=== PATIENT | male | born 1925 | race Caucasian/White ===

== ENCOUNTER 2017-01-16 12:10 | Inpatient (IN) | payer OTHER, BC ==
--- NOTE | 2017-01-16 12:25 | EDPHY ---
H & P HPI/ROS: CHIEF COMPLAINT: Fall, chest bruising, chest pain and hypoxia HISTORY OF PRESENT ILLNESS: Patient presents by EMS from [facility]. He reports a fall last night around 8:00 p.m.. He struck his chest on a hard surface and bathroom. He says he got himself up off the bathroom floor went to his bed. He slept normal and then called his daughter in the morning when he awoke. The daughter contacted the [facility] in the [facility] activated EMS. He complained of some central and left-sided chest pain. Some shortness of breath. He denies striking his head or losing consciousness. He denies any headache or neck pain. No back pain. No abdominal pain. No injuries to the arms or legs. The pain is worse with palpation or movement. Patient is minimally ambulatory without assistance. He seen at time of arrival. No other associated complaints or modifying factors. REVIEW OF SYSTEMS: Ten systems reviewed and are negative unless otherwise noted in the HPI PAST MEDICAL HISTORY: Reviewed. On Coumadin for atrial fibrillation PAST SURGICAL HISTORY: Reviewed SOCIAL HISTORY: Nonsmoker. Lives in [facility] FAMILY HISTORY: Noncontributory EXAMINATION General Appearance: Alert, no distress Head: normocephalic, atraumatic Power sign. No raccoon eyes. Eyes: Pupils equal and round, no conjunctival pallor or injection. EOMs intact. No nystagmus ENT, Mouth: Mucous membranes moist. Airway patent Neck: Normal inspection, supple, non-tender. No crepitus, step-off or deformity. Respiratory: Significant diminishment of the lungs on the right side greater than the left. There are crackles on the left. Mild rhonchi. No retractions or distress. Cardiovascular: Irregularly irregular rhythm. Pulses intact distally symmetrically. There is bruising on the left anterior chest. Gastrointestinal: Abdomen is soft and nontender Back: non-tender, no bony abnormalities Neurological: A&O, nonfocal, normal gait Skin: Warm and dry, no rash multiple areas of ecchymosis the left anterior chest. Extremities: Ecchymosis on left anterior chest. Nontender, symmetric pedal edema. range of motion is symmetric. Psychiatric: Mood and affect normal DIFFERENTIAL DIAGNOSES: Including but not limited to rib fracture, hemothorax, pneumothorax, aortic injury, intracranial hemorrhage, cervical spine injury, contusion, hematoma MDM: 12:20 p.m. Reports a mechanical fall last night. The patient was able to get back up in good was bed. This morning he called his daughter. EMS reports hypoxia was bruising to the anterior chest. He has no headache or neck pain. He has no abdominal pain or injuries to the arms or legs. I have ordered CT scans of the head, cervical spine and chest without contrast due to allergy. I have ordered stat chest x-ray EKG and laboratory studies. 12:40 p.m. Chest x-ray as read by myself and Dr. Bonilla reveals a large sided right pleural effusion versus hemothorax. Patient is already in the CT scanner. Vital signs have improved on supplemental oxygen. He is awake and alert. No acute distress. 12:50 p.m. Notified by RN that family member is now at bedside. She reports that he does not have an IV contrast allergy. However the patient already has had CT scans performed. 1:05 p.m. Case discussed with trauma surgeon Dr. Dawkins. He will await the patient for the possibility of hemothorax. The patient remains awake alert. He is in no distress his vital signs are improving oxygen. He is not tachycardic. He is not hypotensive. 1:20 p.m. Patient has been evaluated by Dr. Dawkins. He has reviewed the patient's images as well. He feels this is fluid overload and not necessarily hemothorax. He would like the patient to be seen by hospitalist and the he will provide consultation. He would like to Coumadin coagulopathy reversed to proceed with thoracentesis when appropriate 1:40 p.m. Case discussed with Dr. Ryan. The patient will be admitted to Dr. Ramesh. He is admitted stable condition with hypoxia, hyperkalemia, congestive heart failure, hypervolemia. We discussed 2 units of FFP and 5 mg of p. o. vitamin K to reverse the Coumadin coagulopathy. These have been ordered 1:[address] scan of the cervical spine reveals an old T1 fracture. Also reveals a acute versus subacute T3 fracture. Unknown chronicity due to no imaging since January 2016. I have discussed this with Dr. Sellers he will provide consultation. He is neuro intact. 2:15 p.m. Contacted by radiologist Dr. Patel. CT scan of the chest reveals multiple abnormalities as noted. The acute findings include left-sided rib fractures 5 through 7. Questionable chronicity of T3 compression fracture. No pneumothorax. No hemothorax. Findings discussed otherwise. Patient remains stable on supplemental oxygen. He has been admitted in stable condition. Source: Patient, EMS Exam Limitations: No limitations - Medical/Surgical History Hx Asthma: No Hx Chronic Respiratory Disease: No Hx Diabetes: No Hx Cardiac Disease: Yes Hx Renal Disease: No Hx Cirrhosis: No Hx Alcoholism: No Hx HIV/AIDS: No Hx Splenectomy or Spleen Trauma: No Other PMH: chf/pacemaker/HTN/IA/back surgery, AF, CABG - Social History Smoking Status: Former smoker Constitutional: Initial Vital Signs Temperature (C) 98.1 F 01/16/17 12:10 Heart Rate 77 01/16/17 12:10 Respiratory Rate 24 H 01/16/17 12:10 Blood Pressure 115/75 01/16/17 12:10 O2 Sat (%) 91 L 01/16/17 12:10 O2 Delivery Mode Oxymask O2 (L/minute) 10 Allergies/Adverse Reactions: No Known Allergies Allergy (Verified 02/14/16 17:39) Home Medications: Medication Instructions Recorded Aspirin EC [Aspirin EC 81 mg (*)] 81 mg PO HS 09/21/14 Carvedilol [Coreg (*)] 6.25 mg PO BIDMEAL 09/21/14 Ramipril [Altace 2.5mg (*)] 2.5 mg PO DAILY 09/21/14 Simvastatin [Zocor] 20 mg PO HS 09/21/14 Warfarin Sodium [Coumadin 2MG (*)] 2 mg PO WESA@21 09/21/14 Potassium Chloride [Klor-Con 10] 10 meq PO DAILY 02/14/16 Ferrous Sulfate [Ferrous Sulf 325 325 mg PO DAILY #30 tab 02/19/16 MG (*)] Cyanocobalamin [Vitamin B12 (*)] 1,000 mcg PO DAILY 01/16/17 Digoxin [Lanoxin 250 mcg (RX)] 250 mcg PO DAILY10 01/16/17 Furosemide [Lasix 40 MG (*)] 40 mg PO DAILY 01/16/17 Herbals/Supplements -Info Only 1 ea PO DAILY 01/16/17 Sennosides/Docusate Sodium 1 - 2 tab PO BID PRN 01/16/17 [Senokot-S] Warfarin Sodium [Coumadin 3MG (*)] 3 mg PO SUMOTUTHFR@21 01/16/17 ZOLPIDEM TARTRATE [Ambien CR 12.5 12.5 mg PO HS 01/16/17 mg] Medical Decision Making - Diagnostics Imaging Results: Imaging Impressions Cervical Spine CT 01/16/17 12:21 Impression: 1. Stable mild to moderate anterior wedge compression of T1 with new compression at T3 since January,. Clinical correlation recommended with respect to location of pain. 2. Multilevel degenerative disk disease most prominent at C5-C6 and at C6-C7 with some underlying mild to moderate spinal stenosis. 3. Mild to moderate facet hypertrophy from C2-C3 through C7-T1. Findings discussed with Dr. Shruthi Buckner who will relay the message to Blackwood Seven PAC at 13:32 hour, 01/16/2017. Chest CT 01/16/17 12:21 Impression: 1. Stable mild to moderate anterior compression of T1 and T7 with interval compression of T3 segment since January,. 2. Acute fractures left fifth through seventh ribs. 3. Stable moderate right pleural effusion with atelectasis and mucous plugging right lower lobe with stable consolidation or atelectasis right middle lobe. 4. Significant decrease in moderate left pleural effusion previously identified with small residual effusion and some atelectasis at the left base and lingula. Findings discussed with Blackwood Seven PAC at 13:57 hour, 01/16/2017. Chest X-Ray 01/16/17 12:21 Impression: Acute congestive heart failure with large right pleural effusion and interstitial pulmonary edema. Head CT 01/16/17 12:21 Impression: 1. Stable moderate atrophy. 2. No hemorrhage, mass effect, or definite acute peripheral infarct. 3. Stable mild microvascular ischemic disease. If symptoms worsen, additional imaging may be necessary. Findings discussed with Yves Torres PAC at 13:25 hour, 01/16/2017. - Data Points Laboratory Results: Laboratory Results 01/16/17 12:20 01/16/17 12:20 01/16/17 01/16/17 01/16/17 12:51 12:20 12:20 WBC RBC Hgb POC Hgb 13.6 gm/dL L gm/dL (13.7-17.5) Hct POC Hct 40 % % (40-51) MCV MCH MCHC RDW Plt Count MPV Neut % (Auto) Lymph % (Auto) [place] % (Auto) Eos % (Auto) Baso % (Auto) Nucleat RBC Rel Count Absolute Neuts (auto) Absolute Lymphs (auto) Absolute Monos (auto) Absolute Eos (auto) Absolute Basos (auto) Absolute Nucleated RBC Immature Gran % Immature Gran # PT INR APTT POC Sodium 144 mEq/L mEq/L (134-144) Sodium 139 mEq/L mEq/L (134-144) POC Potassium 4.2 mEq/L mEq/L (3.3-5.0) Potassium 5.4 mEq/L H mEq/L (3.5-5.2) POC Chloride 108 mEq/L mEq/L (97-110) Chloride 100 mEq/L mEq/L (97-110) Carbon Dioxide 19 mEq/l L mEq/l (22-31) Anion Gap 20 mEq/L H mEq/L (8-16) POC BUN 32 mg/dL H mg/dL (7-23) BUN 35 mg/dL H mg/dL (7-23) Creatinine 1.7 mg/dL H mg/dL (0.7-1.3) POC Creatinine 1.4 mg/dL H mg/dL (0.7-1.3) Estimated GFR 38 Glucose 74 mg/dL mg/dL (70-100) POC Glucose 65 mg/dL L mg/dL (70-100) Calcium 9.8 mg/dL mg/dL (8.5-10.4) Creatine Kinase 55 IU/L IU/L (0-224) Troponin I 0.706 ng/mL H ng/mL (0.000-0.034) NT-Pro-B Natriuret Pep 5910 pg/mL H pg/mL (0-450) Lipase 44 IU/L IU/L (23-300) 01/16/17 01/16/17 12:20 12:20 WBC 11.88 10^3/uL H 10^3/uL (3.80-9.50) RBC 3.94 10^6/uL L 10^6/uL (4.40-6.38) Hgb 14.4 g/dL g/dL (13.7-17.5) POC Hgb Hct 42.8 % % (40.0-51.0) POC Hct MCV 108.6 fL H fL (81.5-99.8) MCH 36.5 pg H pg (27.9-34.1) MCHC 33.6 g/dL g/dL (32.4-36.7) RDW 16.3 % H % (11.5-15.2) Plt Count 90 10^3/uL L 10^3/uL (150-400) MPV 10.3 fL fL (8.7-11.7) Neut % (Auto) 71.4 % % (39.3-74.2) Lymph % (Auto) 12.2 % L % (15.0-45.0) [place] % (Auto) 15.1 % H % (4.5-13.0) Eos % (Auto) 0.1 % L % (0.6-7.6) Baso % (Auto) 0.4 % % (0.3-1.7) Nucleat RBC Rel Count 0.3 % H % (0.0-0.2) Absolute Neuts (auto) 8.48 10^3/uL H 10^3/uL (1.70-6.50) Absolute Lymphs (auto) 1.45 10^3/uL 10^3/uL (1.00-3.00) Absolute Monos (auto) 1.79 10^3/uL H 10^3/uL (0.30-0.80) Absolute Eos (auto) 0.01 10^3/uL L 10^3/uL (0.03-0.40) Absolute Basos (auto) 0.05 10^3/uL 10^3/uL (0.02-0.10) Absolute Nucleated RBC 0.03 10^3/uL H 10^3/uL (0-0.01) Immature Gran % 0.8 % % (0.0-1.1) Immature Gran # 0.10 10^3/uL 10^3/uL (0.00-0.10) PT 43.0 SEC H SEC (12.0-15.0) INR 4.42 H (0.83-1.16) APTT 43.4 SEC H SEC (23.0-38.0) POC Sodium Sodium POC Potassium Potassium POC Chloride Chloride Carbon Dioxide Anion Gap POC BUN BUN Creatinine POC Creatinine Estimated GFR Glucose POC Glucose Calcium Creatine Kinase Troponin I NT-Pro-B Natriuret Pep Lipase Medications Given: Discontinued Medications Phytonadione (Vitamin K) 5 mg PO EDNOW ONE Stop: 01/16/17 13:35 Last Admin: 01/16/17 14:08 Dose: 5 mg Point of Care Test Results: 01/16/17 12:51 POC Sodium 144 POC Potassium 4.2 POC Chloride 108 POC BUN 32 H POC Creatinine 1.4 H POC Glucose 65 L Departure - Departure Disposition: [facility] Inpatient Acute Clinical Impression: Pleural effusion, Warfarin-induced coagulopathy, Hyperkalemia, Multiple fractures of ribs, left side, initial encounter for closed fracture Hypervolemia Qualifiers: Hypervolemia type: unspecified Qualified Code(s): E87.70 - Fluid overload, unspecified Fall Qualifiers: Encounter type: initial encounter Qualified Code(s): W19.XXXA - Unspecified fall, initial encounter Thoracic compression fracture Qualifiers: Encounter type: initial encounter Fracture type: closed Qualified Code(s): S22.000A - Wedge compression fracture of unspecified thoracic vertebra, initial encounter for closed fracture Condition: Fair
--- NOTE | 2017-01-16 12:32 | CPEKG ---
Heart Rate: 79 RR Interval: 759 P-R Interval: 170 QRSD Interval: 162 QT Interval: 416 QTC Interval: 477 P [place]: 0 QRS [place]: -73 T Wave [place]: 115 EKG Severity - ABNORMAL ECG - EKG Impression: VENTRICULAR-PACED RHYTHM Electronically Signed By: Kushal Bonilla 16-Jan-2017 12:39:15
[2017-01-16 12:36] LABS: % IMMATURE GRANULYOCYTES 0.8 % (0.0-1.1); ABSOLUTE NRBC COUNT 0.03 10^3/uL (0-0.01); ADD DIFF? NO; ADD MORPH? NO; ADD SCAN? NO; ATYPICAL LYMPHOCYTE FLAG 10 (0-99); FRAGMENT RBC FLAG 0 (0-99); HEMATOCRIT 42.8 % (40.0-51.0); HEMOGLOBIN 14.4 g/dL (13.7-17.5); LEFT SHIFT FLG 10 (0-99); LIPEMIA HEMOLYSIS FLAG 80 (0-99); MEAN CELL HEMOGLOBIN 36.5 pg (27.9-34.1); MEAN CELL HEMOGLOBIN CONCENTR. 33.6 g/dL (32.4-36.7); MEAN CELL VOLUME 108.6 fL (81.5-99.8); MEAN PLATELET VOLUME 10.3 fL (8.7-11.7); NRBC-AUTO% 0.3 % (0.0-0.2); PLATELET CLUMPS FLAG 0 (0-99); PLATELET COUNT 90 10^3/uL (150-400); RED BLOOD CELL COUNT 3.94 10^6/uL (4.40-6.38); RED CELL DISTRIBUTION WIDTH 16.3 % (11.5-15.2)
[2017-01-16 12:50] LABS: INR 4.42 (0.83-1.16)
[2017-01-16 12:51] LABS: APTT 43.4 SEC (23.0-38.0)
[2017-01-16 13:01] LABS: ANION GAP 20 mEq/L (8-16); CALCIUM 9.8 mg/dL (8.5-10.4); CARBON DIOXIDE 19 mEq/l (22-31); CHLORIDE 100 mEq/L (97-110); CREATININE 1.7 mg/dL (0.7-1.3); GLOMERULAR FILTRATION RATE 38; GLUCOSE 74 mg/dL (70-100); POTASSIUM 5.4 mEq/L (3.5-5.2); SODIUM 139 mEq/L (134-144)
[2017-01-16 13:11] LABS: TROPONIN I 0.706 ng/mL (0.000-0.034)
[2017-01-16] MEDS ORDERED: PHYTONADIONE 2.5 MG/2.5 ML ORAL UDL PO ONE (13:34)
[2017-01-16] MEDS ORDERED: HYDROmorphONE/DILAUDID 1 MG/ML INJ IVP PRN (15:10)
[2017-01-16] MEDS ORDERED: oxyCODONE IR 5 MG TAB PO PRN (15:10)
[2017-01-16] MEDS ORDERED: ONDANSETRON DISINTEGRATING 4 MG TAB PO PRN (15:10)
[2017-01-16] MEDS ORDERED: ALBUTEROL 3 ML DEYVIAL IH PRN (15:10)
[2017-01-16] MEDS ORDERED: ACETAMINOPHEN 325 MG TAB PO PRN (15:10)
[2017-01-16] MEDS ORDERED: ONDANSETRON 4 MG/2 ML VIAL IVP PRN (15:10)
[2017-01-16] MEDS ORDERED: SENNOSIDES/DOCUSATE SODIUM TAB PO PRN (15:13)
--- NOTE | 2017-01-16 16:18 | SOAPPROG ---
SOAP Progress Note Assessment/Plan: Assessment: 89-YEAR-OLD MALE WHO TRIPPED AND FELL AT HOME WITH SOME ECCHYMOSIS OVER HIS LEFT ANTERIOR CHEST. DENIES LOSS OF CONSCIOUSNESS. HE APPEARS HOWEVER TO HAVE A LARGE EFFUSION ON THE RIGHT WITH NO OBVIOUS RIB FRACTURES RIGHT-SIDED CHEST TRAUMA. HE ALSO APPEARS TO BE IN SIGNIFICANT CONGESTIVE HEART FAILURE WITH SHORTNESS OF BREATH AND HYPOXEMIA, LEG EDEMA AND LARGE RIGHT PLEURAL EFFUSION HE IS ANTICOAGULATED WITH COUMADIN FOR AFIB WITH AN INR 4.4 I DOUBT THAT HE IS A TRAUMA IS A SIGNIFICANT PART OF HIS MEDICAL PICTURE AT THIS POINT AND RECOMMEND THE PATIENT BE ADMITTED TO INTERNAL MEDICINE. I WILL FOLLOW THE PATIENT. HE WILL NEED REVERSAL IS INR AND THEN THORACENTESIS ON THE RIGHT WITH POSSIBLE CHEST TUBE PLACEMENT OF BLOODY. RISKS AND OPTIONS BEEN DISCUSSED WITH THE PATIENT AND HIS FAMILY Plan: ADMIT TO INTERNAL MEDICINE/INR REVERSAL/RIGHT THORACENTESIS 01/16/17 16:16 Objective: Vital Signs Temp Pulse Resp BP Pulse Ox 36.7 C 82 20 122/66 H 92 01/16/17 14:44 01/16/17 14:44 01/16/17 14:44 01/16/17 14:44 01/16/17 14:44 PT 43.0 SEC (12.0-15.0) H 01/16/17 12:20 INR 4.42 (0.83-1.16) H 01/16/17 12:20 ICD10 Worksheet Patient Problems: Problems Problem Status Onset Fall Acute Hyperkalemia Acute Hypervolemia Acute Multiple fractures of ribs, left side, initial encounter for closed fracture Acute Pleural effusion Acute Thoracic compression fracture Acute Warfarin-induced coagulopathy Acute Bilateral pleural effusion Acute Cellulitis Acute Chronic Disease Mgmt/Transitional Care Acute Excessive anticoagulation Acute Ribs, multiple fractures Acute
[2017-01-16] MEDS: CARVEDILOL 6.25 MG TAB PO SCH (18:35)
[2017-01-16] MEDS: NS 1,000 ML IV SCH (18:37)
--- NOTE | 2017-01-16 19:04 | GHP ---
[f rep st] HISTORY AND PHYSICAL DATE OF ADMISSION: 01/16/2017 CHIEF COMPLAINT: Shortness of breath and fall. HISTORY: This is an 89-year-old man who presents after being found at his assisted living facility s itting in his chair today in his [facility]. Apparently, patient notes that yesterday in the evening he got up to go to the bathroom and fell in the bathroom striking his left side. He was noted to have some left-sided bruising. He was also found by paramedics to be hypoxic with room-air sats noted in the 70s. Per his daughter, she notes that even before yesterday he has seemed to have declined recen tly with worsening shortness of breath as well as increased lower extremity edema, which he does have chronically. She notes that he recently began using a wheelchair more often than walking and that s eems to be contributing to his worsening fluid status. He is followed by Dr. Hernandez of cardiology. At the time my evaluation, patient denies any significant pain. He denies any shortness of breath now that he has oxygen in place. He denies hitting his head or any loss of consciousness with his fa ll. PAST MEDICAL HISTORY: 1. Coronary artery disease. 2. Chronic systolic heart failure with ejection fraction approximately 30%. 3. Atrial fibrillation, status post permanent pacemaker. 4. Carotid stenosis. PAST SURGICAL HISTORY: 1. CABG. 2. Right CEA. 3. Kyphoplasty. FAMILY HISTORY: Parents are . SOCIAL HISTORY: The patient has remote tobacco use history. He drinks 1-2 double shots of scotch pe r day. Per his daughter, this has been increasing. He currently resides at [facility] in [facility] but has family nearby who are quite involved with his care, including a daughter who is present at bedside. REVIEW OF SYSTEMS: 10-point Review of Systems obtained and negative, except as per HPI. MEDICATIONS: 1. Vitamin B12. 2. Digoxin. 3. Coreg. 4. Aspirin. 5. Senna. 6. Ramipril. 7. Potassium. 8. Lasix. 9. Warfarin. 10. Iron. 11. Simvastatin. 12. Zolpidem. ALLERGIES: No known drug allergies. PHYSICAL EXAMINATION: VITAL SIGNS: BP 122/66, heart rate 82, respiratory rate 20, O2 sat is 92% on 8 L. Temperature is 36.7. GENERAL APPEARANCE: This is a chronically ill-appearing elderly man. He is awake and alert. He is somnolent. EYES: Anicteric. HENT: Oropharynx clear. CARDIOVASCULAR: Regular rate and rhythm, no murmurs, rubs, or gallops. PULMONARY: Decreased breath sounds at the b ases with bilateral rhonchi. ABDOMEN: Soft, nontender. Positive bowel sounds. EXTREMITIES: 1+ pi tting edema bilateral lower extremities. SKIN: Hyperpigmentation and flaky skin of the bilateral lo wer extremities. NEURO/PSYCH: Patient is somnolent, but otherwise appropriate when awake. CLINICAL DATA: EKG personally reviewed and interpreted, shows V-paced rhythm. Cervical spine CT shows stable [id number] anterior wedge compression of T1 with new compression at T3, multilevel disk disease. Head CT shows stable moderate atrophy without any acute findings. Chest x-ray, personally reviewed and interpreted, shows findings consistent with CHF including a larg e right pleural effusion and interstitial pulmonary edema. Chest CT shows acute fractures of left 5th through 7th ribs, stable moderate right pleural effusion w ith atelectasis and mucus plugging of the right lower lobe, and significantly decreased moderate left pleural effusion. CLINICAL DATA: Labs were reviewed. Significant for white blood cell count of 11.8, hematocrit of 42 .8, platelets of 90. INR is 4.4. Creatinine 1.7 with a baseline closer to 1.1. ProBNP 5910. Tropo skylar 0.706. ASSESSMENT AND PLAN: This is an 89-year-old man with past medical history of coronary artery disease and congestive heart failure presenting status post a fall with acute hypoxic respiratory failure an d pleural effusion. 1. Acute hypoxic respiratory failure. Again, this is multifactorial in the setting of a presumed co ngestive heart failure exacerbation as well as multiple rib fractures and bilateral pleural effusions , right greater than left. The patient did have a recent trauma, though he notes that he fell on his left side and the more significant pleural effusion is on the right. Plan is for thoracentesis once his INR has been reversed. He will be continued on supplemental oxygen. 2. Hkxfp-kx-hxohofg systolic heart failure. Again, patient with findings consistent with acute deco mpensated congestive heart failure. He requires both thoracentesis and diuresis, although at this po int with acute kidney injury, will hold off on diuresing for the time being. We will obtain echocard iogram in the morning. We will continue to trend troponins. We will ask Cardiology to evaluate. 3. Coagulopathy. The patient is on anticoagulation chronically but presents with an INR 4.4. This is being reversed with fresh frozen plasma and also has been given vitamin K. Will recheck INR and c ontinue reversal if indicated. 4. Acute kidney injury with creatinine 1.7 on arrival, with a baseline closer to 1.1. Suspect this is likely being driven by being intravascularly dry, though he is volume overloaded on exam. Given t he patient is nothing per mouth for possible thoracentesis, I will start gentle fluids overnight. Ag ain, ultimately I do feel he needs diuresis but at this time is being held for both acute kidney inju ry and need for likely procedure. 5. Acute rib fractures. Again, patient with several rib fractures. Given his age and frail status, this places him at very high risk. We will start rib protocol. Surgery is following. 6. Elevated troponin, again in the setting of congestive heart failure exacerbation. Trending for n ow. Monitoring on telemetry. 7. Inpatient status. Expect he will need greater than 48-hour stay for evaluation and management of above, given his multiple active medical issues, all of which place him at high risk. 8. Code status is do not resuscitate. This was confirmed by his daughter. She would be his decisio n maker. 9. Patient is new to my care. Old records reviewed, summarized as per HPI and Past Medical History. Care plan reviewed with emergency room physician, including plans for thoracentesis. /[id number]/MODL
[2017-01-16] MEDS: ATORVASTATIN CALCIUM 10 MG TAB PO SCH (20:21)
[2017-01-16] MEDS: ZOLPIDEM TARTRATE 5 MG TAB PO SCH (20:21)
[2017-01-16] MEDS ORDERED: NON-FORMULARY NEW DRUG (Zolpidem Tartrate [Ambien Cr 12.5 Mg] 12.5 MG) PO SCH (21:00)
--- NOTE | 2017-01-16 21:04 | GCON ---
[f rep st] CONSULTATION The patient is an 89-year-old male who was brought to the ER after a fall in his apartment where he tripped. He complained of some bruising across his left anterior chest. I was consulted, however, for a right pleural effusion. His fall happened yesterday. He denies any definite loss of consciousness; however , is quite hypoxic requiring oxygen mask oxygen. At the present time, he denies any significant pain but he does appear to be short of breath. PAST MEDICAL HISTORY: Coronary artery disease with coronary bypass graft, pacemaker for atrial fibrillation and chronic congestive heart failure, history of a right carotid endarterectomy, and some kyphoplasties. FAMILY HISTORY: Noncontributory. MEDICATIONS: Coreg, aspirin, ramipril, senna, digoxin, and vitamin B12. ALLERGIES: None. REVIEW OF SYSTEMS: Reveals no additional medical findings on a full 10-point Review of Systems. He is an ex-smoker and does drink 1 or 2 drinks per day. According to his daughter, he has been progressively declining with more weakness and more shortness of breath. In addition to the medical list are warfarin, Lasix, iron, Zocor, and Ambien. PHYSICAL EXAMINATION: GENERAL: An alert, cooperative 89-year-old male who is in no acute distress. VITAL SIGNS: Blood pressure 122/66, FiO2 was 91% on 8 L of oxygen. He is afebrile. HEAD/NECK: No icterus. No oral lesions. Neck is reasonably supple for 89. There is no adenopathy. No carotid bruits. CARDIAC : Regular rhythm, has a pacemaker in place. CHEST: Markedly decreased breath sounds on the right side in the base and bilateral rhonchi.Nontender despite known rib fxs on left. ABDOMEN: Soft, nontender, without hernias. EXTREMITIES : 2+ edema. Some chronic venous stasis changes but positive pedal pulses. SKIN: Some hyperpigmentation in the lower extremities. No other major skin lesions. NEUROLOGIC: Reveals him to be oriented. Symmetrical motor and sensory exam. His legs are somewhat weak. IMPRESSION: Congestive heart failure with large right pleural effusion, blunt left chest trauma with left 5th and 7th rib fractures, which are nondisplaced. In addition, he has some chronic renal failure and coagulopathy secondary to his Coumadin with an INR greater than 4. PLAN: Admit to Internal Medicine with surgical consultation and followup for his left rib fractures, which are unrelated to his hypoxia and large right pleural effusion. He will need his coagulopathy corrected and then a thoracentesis and/or chest tube placement on the right. Rib protocol has been ordered. /[id number]/MODL MTDD
[2017-01-16] MEDS ORDERED: NS 500 ML IV ONE (21:13)
[2017-01-16 23:20] LABS: INR 3.43 (0.83-1.16); PROTIME(PATIENT) 35.1 SEC (12.0-15.0)
[2017-01-16 23:21] LABS: APTT 43.4 SEC (23.0-38.0)
--- NOTE | 2017-01-17 00:32 | HOSPPROG ---
Hospitalist Progress Note Assessment/Plan: called to bedside for hypotension, increased O2 requirements. stat echo ordered - EF better than previous (30-35%), ongoing inf/septal WMA with possibly new ant WMA. given small NS bolus with improvement in BP. O2 sats slightly better. trop peaked at 1.5 needs cards consult in am, overnight if he worsens, for possible cath depending on his goals (he had received ambien when i saw him and this discussion was difficult). thoracentesis in am. Objective: Vital Signs Temp Pulse Resp BP Pulse Ox 36.8 C 60 19 86/55 L 93 01/16/17 23:55 01/16/17 23:55 01/16/17 23:55 01/16/17 23:55 01/16/17 23:55 01/15/17 01/16/17 01/17/17 05:59 05:59 05:59 Intake Total 75 Output Total 400 Balance -325 PT 35.1 SEC (12.0-15.0) H 01/16/17 22:50 INR 3.43 (0.83-1.16) H 01/16/17 22:50 ICD10 Worksheet Patient Problems: Problems Problem Status Onset Cellulitis Acute Excessive anticoagulation Acute Ribs, multiple fractures Acute Bilateral pleural effusion Acute Chronic Disease Mgmt/Transitional Care Acute Hypervolemia Acute Pleural effusion Acute Warfarin-induced coagulopathy Acute Fall Acute Hyperkalemia Acute Thoracic compression fracture Acute Multiple fractures of ribs, left side, initial encounter for closed fracture Acute
[2017-01-17 04:32] LABS: % IMMATURE GRANULYOCYTES 0.4 % (0.0-1.1); ABSOLUTE IMMATURE GRANULOCYTES 0.04 10^3/uL (0.00-0.10); ABSOLUTE NRBC COUNT 0.03 10^3/uL (0-0.01); ADD DIFF? NO; ADD MORPH? NO; ADD SCAN? NO; ATYPICAL LYMPHOCYTE FLAG 0 (0-99); FRAGMENT RBC FLAG 0 (0-99); HEMATOCRIT 36.8 % (40.0-51.0); HEMOGLOBIN 12.5 g/dL (13.7-17.5); LEFT SHIFT FLG 0 (0-99); LIPEMIA HEMOLYSIS FLAG 90 (0-99); MEAN CELL HEMOGLOBIN 36.2 pg (27.9-34.1); MEAN CELL VOLUME 106.7 fL (81.5-99.8); MEAN PLATELET VOLUME 10.4 fL (8.7-11.7); NRBC-AUTO% 0.3 % (0.0-0.2); PLATELET CLUMPS FLAG 0 (0-99); PLATELET COUNT 81 10^3/uL (150-400); RED BLOOD CELL COUNT 3.45 10^6/uL (4.40-6.38); RED CELL DISTRIBUTION WIDTH 16.2 % (11.5-15.2)
[2017-01-17 04:43] LABS: ANION GAP 13 mEq/L (8-16); CARBON DIOXIDE 21 mEq/l (22-31); CHLORIDE 104 mEq/L (97-110); CREATININE 1.7 mg/dL (0.7-1.3); GLOMERULAR FILTRATION RATE 38; GLUCOSE 88 mg/dL (70-100); POTASSIUM 4.9 mEq/L (3.5-5.2); SODIUM 138 mEq/L (134-144)
[2017-01-17 04:44] LABS: INR 2.96 (0.83-1.16); PROTIME(PATIENT) 31.2 SEC (12.0-15.0)
--- NOTE | 2017-01-17 05:50 | GCON ---
[f rep st] CONSULTATION NEUROSURGERY CONSULT NOTE DATE OF CONSULTATION: 01/16/2017 Patient was seen and evaluated at approximately 3 p.m. on the general care floor at [facility]. HISTORY OF PRESENT ILLNESS: The patient is an 89-year-old man, who had a fall last night around 8 p. m. at [facility]. He apparently struck his chest on a hard surface in the bathroom. He was able t o get up and went to bed, slept normally and then called his daughter this morning. At that time, he was having some left-sided chest pain and some shortness of breath. He did not strike his head or l ose consciousness. He was denying any back pain or neck pain. [facility] he was worked up. CT of the head and cervical spine were obtained. The CT of the cervical spine revealed compression fractures at T1 and T3, and the T3 fracture was not visualize d on previous imaging approximately 1 year ago. He did not complain of any back pain, but was having significant shortness of breath, and was admitted to the hospital for that reason. REVIEW OF SYSTEMS: A 10-point review of systems is negative other than that described above in the H PI. PAST MEDICAL HISTORY: 1. Coronary artery disease. 2. Chronic systolic heart failure with ejection fraction approximately 30%. 3. Atrial fibrillation on Coumadin with a pacemaker. 4. Carotid stenosis. PAST SURGICAL HISTORY: 1. Coronary artery bypass grafting. 2. Right carotid endarterectomy. 3. Kyphoplasty. FAMILY HISTORY: His parents are . He denies any other major medical problems or spinal issu es that run in the family. SOCIAL HISTORY: The patient has remote history of tobacco use. He does still drink some scotch and is living in assisted living currently. He is accompanied by his daughter today. ALLERGIES: No known drug allergies. MEDICATIONS: 1. Vitamin B12. 2. Digoxin. 3. Coreg. 4. Aspirin. 5. Senna. 6. Ramipril. 7. Potassium. 8. Lasix. 9. Warfarin. 10. Iron. 11. Simvastatin. 12. Zolpidem. PHYSICAL EXAM: VITAL SIGNS: Currently, he is afebrile with normal stable vital signs. NEUROLOGIC: He is awake, alert, and oriented x3. He answers questions easily. His cranial nerves 2-12 are aniyah sly normal. He has full 5/5 strength in the upper and lower extremities in all muscle groups. Palpa tion of his neck and back does not reveal any tenderness throughout the neck or thoracic spine. His sensation appears to be intact. IMAGING REVIEW: See HPI. LABORATORY REVIEW: The white count is 11.8, hemoglobin 14.4, hematocrit is 42.8, platelet count is 9 0,000. His INR is 4.42. PTT is 43.4. His sodium is 144, potassium 4.2, BUN is 35, creatinine 1.7. His troponins are elevated and his BNP is 5910. ASSESSMENT AND PLAN: The patient is an 89-year-old man, who had a fall last night. Imaging today re veals mild compression fractures of T1 and T3 without significant loss of height. The patient has no back pain at this time, so I would expect that these are probably remote fractures, although it is s omewhat difficult to know. I do not think that it is necessary to get any further imaging or MRI sca n at this time, although if the patient does start to develop upper back pain or complaint of this, t hen an MRI scan would show the acuity of these fractures. These could then be treated in a brace nhan anna possible kyphoplasty, but given he does not have any pain in this area at this time, I doubt this would be necessary. At this time, I do not think he has any reason for any bracing or further manag ement or workup of these fractures. We will be available for consultation at any point. Please cont act us if there are any further questions or concerns. I do not think he needs any further neurosurg ical followup at this time. Thanks for the kind consultation. /[id number]/MODL
[2017-01-17] MEDS ORDERED: RAMIPRIL 2.5 MG CAP PO SCH (09:00)
--- NOTE | 2017-01-17 09:16 | ECHO ---
[id number] + + [address] : : [place] [address] : : [phone] + + Adult Echocardiographic Report + ------+ :Name: Fariba JASMINE Date: 01/16/2017 11:26 PM : : Hospital Admission Number: [id number] Locatio n: 205: :: 1925 Gender: Male Height: 66 in : :Age: 89 yrs Race: WH Weight: 150 lb : :Reason For Study: Eval LV Fx : : BSA: 1.8 meters 2 : :History: Hypotension : + ------+ MMode/2D Measurements & Calculations IVSd: 1.0 cm LVIDd: 3.6 cm FS: 40.4 % Ao root diam: LVPWd: 1.0 cm LVIDs: 2.2 cm EDV(Teich): 3.0 cm 54.8 ml ACS: 1.1 cm ESV(Teich): 15.3 ml EF(Teich): 72.0 % LVLd ap4: 6.3 cm SV(MOD-sp4): EDV(MOD-sp4): 23.0 ml 48.0 ml LVLs ap4: 5.3 cm ESV(MOD-sp4): 25.0 ml EF(MOD-sp4): 47.9 % Normal Measurement Values: + + :LVIDd (3.5-5.7cm) IVSd (0.6-1.1cm) LVPWd (0.6-1.1cm) Aortic Root (2.0-3.7cm)Left Atrium (1.5-4.0cm): :LV Vol(d) (76-115ml) LV Vol(s) (29-48ml) Ejec Fraction (50-65%)PV Parag (0.6- 1.2m/s) TV Parag (0.4-1.0m/s) : :MV E Parag (0.8-1.0m/s)MV A Parag (0.3-1.0m/s)LVOT Parag (0.7-1.2m/s) Asc Ao Parag ( 0.9-1.8m/s) : + + Doppler Measurements & Calculations Ao V2 max: 113.0 cm/sec LV V1 max: 232.1 cm/sec TR max parag: 202.2 cm/sec Ao max P.1 mmHg LV V1 max P.6 mmHg TR max P.4 mmHg LV V1 mean P.8 mmHg RAP systole: 5.0 mmHg LV V1 mean: 75.1 cm/sec RVSP(TR): 21.4 mmHg LV V1 VTI: 20.4 cm Left Ventricle The left ventricle is normal in size. There is normal left ventricular wall thickness. Ejection Fraction = 35-40%. There is inferior and septal akinesis. There is Doppler evidence for diastolic dysfunction. Right Ventricle There is a pacemaker lead in the right ventricle. The right ventricle is mildly dilated. Atria The left atrium is mildly dilated. Right atrial size is normal. Mitral Valve There is calcified chordae,. There is no mitral valve stenosis. There is mild mitral regurgitation. Tricuspid Valve There is mild to moderate tricuspid regurgitation. Right ventricular systolic pressure is normal. Aortic Valve There is mild aortic valve calcification. There is no aortic stenosis. There is no aortic insufficiency. Pulmonic Valve The pulmonic valve is normal in structure and function. There is no pulmonic valvular regurgitation. Great Vessels The aortic root is normal size. Pericardium/Pleural There is no pericardial effusion. Results discussed with Dr Arnold. Conclusion A complete two-dimensional transthoracic echocardiogram was performed (2D, M-mode, Doppler and color flow Doppler). Ejection Fraction = 35-40%. There is inferior and septal akinesis. There is Doppler evidence for diastolic dysfunction. There is a pacemaker lead in the right ventricle. The left atrium is mildly dilated. Right atrial size is normal. There is calcified chordae, There is mild mitral regurgitation. There is mild to moderate tricuspid regurgitation. Right ventricular systolic pressure is normal. There is mild aortic valve calcification. There is no pericardial effusion. Results discussed with Dr Arnold. Final Reading Physician: Lanie Rodas signed on 01/17/2017 09:14 AM Ordering Physician: Ant Talbert Performed By: Harman Sosa, [facility]
[2017-01-17] MEDS ORDERED: PNEUMOC 13-VAL CONJ-DIP CRM/PF 0.5 ML SYR IM ONE ×2 (10:00→14:00)
[2017-01-17] MEDS ORDERED: FLU VACC QS 2017-18 (3YR+)/PF 0.5 ML SYR (FLUARIX QUAD) IM ONE ×2 (10:00→14:00)
[2017-01-17] MEDS: CARVEDILOL 6.25 MG TAB PO SCH ×2 (10:33→18:48)
[2017-01-17] MEDS: DIGOXIN 250 MCG TAB PO SCH (10:34)
[2017-01-17] MEDS: CYANO/VITAMIN B12 1000 MCG TAB PO SCH (10:56)
[2017-01-17] MEDS: FERROUS SULFATE 325 MG TAB PO SCH (10:56)
[2017-01-17] MEDS ORDERED: PHYTONADIONE 10 MG in NS 50 ML IV ONE (13:19)
--- NOTE | 2017-01-17 14:37 | TRAUMAPN ---
<Yissel Rivas - Last Filed: 01/17/17 17:23> Assessment/Plan: 89yo M s/p fall. Acute left rib fractures 5-7. CHF with large right pleural effusion. Afib on chronic anticoagulation, INR supratherapeutic. Does not complain of pain at this time Hypoxia requiring supplemental O2. Needs thoracentesis but waiting for reversal of INR Cardiology consult today INR supratherapeutic s/p FFP and vitamin K Skin tear L elbow - change allevyn PRN Appreciate hospitalist management of comorbidities Patient additionally seen by Dr. Smith, trauma will sign off - re-consult if needed S: no pain, no shortness of breath or chest pain, min dry cough. No new injuries noted today O: laying in bed, resting comfortably but arouses easily, daughter at bedside NCAT, no hearing deficits, PER, no scleral icterus, MM dry Decreased BS RLL, supplemental O2 RRR No deformities of BUE and BLE, nontender to palpation Left elbow skin tear CDI no e/o infection. Allevyn reapplied Mood and affect normal Neuro grossly intact Objective: Vital Signs Temp Pulse Resp BP Pulse Ox 36.4 C 75 24 H 95/67 L 94 01/17/17 11:44 01/17/17 11:44 01/17/17 11:44 01/17/17 11:44 01/17/17 11:44 Laboratory Results 01/17/17 03:29 01/17/17 03:29 01/16/17 01/17/17 01/18/17 05:59 05:59 05:59 Intake Total 1575 1597 Output Total 500 125 Balance 1075 1472 PT 31.2 SEC (12.0-15.0) H 01/17/17 03:29 INR 2.96 (0.83-1.16) H 01/17/17 03:29 <Lori Smith - Last Filed: 01/17/17 22:23> Assessment/Plan: I do not think the pleural effusion is related to the trauma. Ultrasound guided thoracentesis tomorrow. Discussed with patient and his daughter Objective: Vital Signs Temp Pulse Resp BP Pulse Ox 36.7 C 75 18 102/63 92 01/17/17 19:59 01/17/17 19:59 01/17/17 19:59 01/17/17 19:59 01/17/17 19:59 Laboratory Results 01/17/17 03:29 01/17/17 03:29 01/16/17 01/17/17 01/18/17 05:59 05:59 05:59 Intake Total 1575 2061 Output Total 500 125 Balance 1075 1936 PT 25.3 SEC (12.0-15.0) H 01/17/17 17:30 INR 2.28 (0.83-1.16) H 01/17/17 17:30
--- NOTE | 2017-01-17 16:27 | GCON ---
[f rep st] CONSULTATION CARDIOVASCULAR CONSULTATION DATE OF CONSULTATION: 01/17/2017 The patient has a long history of vascular disease. He has longstanding atrial fibrillation and he i s on anticoagulation. He has had trauma and fractured ribs. He did not lose consciousness, according to himself, but he di d fall out, and was brought to the emergency room. He was brought in from long term by the [facility]. He was reaching for a grab-bar, missed it and subsequently fell with the development of acute fractur es. He also was found to have a large right pleural effusion and interstitial pulmonary edema. His chest CT showed stable and moderate anterior compression of T1 and T7, interval compression of T3 sin ce January 2016, acute fractures of the left 5th through 7th ribs, moderate right pleural effusion wi th atelectasis and mucous plugging, right lower lobe with stable consolidation or atelectasis, right middle lobe. Significant decrease in moderate left pleural effusion previously identified. Chest x- ray was read as some question of heart failure, but a large pleural effusion. Head CT showed no hemo rrhage, mass effect, or definite acute peripheral effect, stable moderate atrophy, and mild microvasc ular disease. He has findings of the cervical spine. Today, he says he has no chest pain, had no chest pain yesterday. His daughter says he has had a lit tle bit of increased edema, but he does not have that at this time. He says he has no acute complain ts except he is tired, and his daughter says he is quite somnolent for himself. His legs have been g etting weaker and weaker and now, he has to use a motor chair to get around. He does not have orthopnea, PND or dyspnea on exertion, he tells me. He has been as active as he can be. He has not had new other complaints just recently. He has been taking his medications and has been pretty healthy. His cardiac history includes a bypass surgery, carotid endarterectomy on the right, dyslipidemia, a l magan ago history of smoking. He has had longstanding atrial fibrillation. He has a permanent pacemaker. It does not sound by the history that there have been any dramatic changes in his cardiovascular comp laints recently. PAST MEDICAL HISTORY: Surgical history: Status post kyphoplasty. Status post carotid endarterectomy, right. Status post bypass surgery. SOCIAL HISTORY: He was born in [place], [place]. Spent most of his life there. Lately, his legs have been giving out and he has had to use a power chair. 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 He did smoke in the past. He does not smoke at this time. He does not drink signi ficant amounts of alcohol, though he enjoys some daily alcohol. He has 3 children, and 1 daughter is here in [place]. REVIEW OF SYSTEMS: A 12-point review of systems negative except as noted above. FAMILY HISTORY: No family history of premature coronary disease. No history of unexplained sudden at a young age. MEDICATIONS: Vitamins, digoxin, Coreg, aspirin, senna, ramipril, potassium, Lasix, warfarin, iron, s imvastatin, Zolpidem. ALLERGIES: None. PHYSICAL EXAMINATION: VITAL SIGNS: Blood pressure is 115/70, heart rate 75 regular, respiratory rat e 14. GENERAL: He is lying comfortably in bed. NECK: Supple. CARDIOVASCULAR: S1, S2. Systolic murmur at the left sternal border. No diastolic murmur. No S3, S4. No rubs. PULMONARY: Rhonchi b ilaterally, decreased breath sounds both bases. ABDOMEN: Soft, nontender, without masses. CVA: No tenderness. EXTREMITIES: No significant edema. He has age-related changes. No tenderness. Negat peña Homans' sign. SKIN: Age-related changes. PSYCH: No obvious anxiety or depression. He is tire d. NEURO: He is alert and oriented. LAB AND X-RAY: Chest x-ray showed some interstitial edema, large right pleural effusion, interstitia l pulmonary edema. Creatinine of 1.7. White count 11.88, hematocrit 42. INR was 4.42, 3.43, down to 2.96. Sodium 138, potassium 4.9, chloride 104, CO2 21, BUN is 45, creatinine 1.7. Troponin was 0.7 when he came in, 1 .5, 1.3, 1.4. BNP was 5910. ASSESSMENT AND PLAN: 1. Congestive heart failure. 2. Chronic ischemic cardiomyopathy. 3. Coronary artery disease. 4. Status post carotid endarterectomy. 5. Mild mitral regurgitation. 6. Moderate tricuspid regurgitation. 7. Permanent pacemaker. 8. Hyperlipidemia. 9. He has had a fall, has fractured ribs. He is found to have a large effusion. There is some ques tion whether it could be a hemothorax. His INR was markedly elevated and much higher than it needs t o be. What we will do at this time is follow along with you. His creatinine is high, so he has not been ge tting any diuretics. I do not think he has significant heart failure at this time. He has periphera l edema, which is very minimal. He needs great help in getting more active, and he is going to do poorly if he stays chair-bound. His atrial fibrillation is rate controlled right now and not causing a major problem for him. He is going to get a thoracentesis to see if he has a hemothorax secondary to the trauma that he has had, which is quite significant, and the prolonged INR that he came in with. In time, we will have to see how he responds, and then also consider whether or not we need to do mor e intervention and testing to look for ischemic coronary disease. Right now, there are no acute find ings for an acute coronary syndrome. I do not think he needs to have a stress test right at this min alondra, or coronary angiography. His LV systolic function is what it has been, and stable for a long ti me. We will watch his medications with you and see how he does. We may need to drop his INR to a much lower therapeutic level, to try to keep from getting significan t bleeds, etc., which he can be prone to at times. At this time, all of his questions have been answered. I have talked to his daughter, so we will jus t follow him with you while we get this evaluation done for the pleural fluid. /[id number]/MODL
--- NOTE | 2017-01-17 17:03 | ASMTCMCOM ---
CM Note CM Note Notes: 01/17/2017 Case Management Note: Reviewed chart, spoke w/RN. Met w/Daughter Leanne and Merari Neri from [facility] [phone] office, cell [phone]. Pt lives in [place] at [facility]. Daughter has explored moving pt to [place] or SNF jail care at [facility]. Case Management d/c poc: To be determined. [facility] able to move pt to higher level of care such as SNF rehab if needed or have home health come to [place]. Case Management to follow. Date Signed: 01/17/2017 05:02 PM Electronically Signed By:Payal Noland RN
--- NOTE | 2017-01-17 17:44 | HOSPPROG ---
Hospitalist Progress Note Assessment/Plan: 89 yo M with PMH of CAD, CHF presenting w/p fall with large pleural effusion, multiple rib fractures and acute on chronic chf # acute on chronic systolic/diastolic heart failure: at this time has e/o pleural effusions and pulmonary edema as well as increased lower extremity edema that is likely due to decompensated chf. He is hypotensive and has LANDON, limiting our ability to diurese him. With a large right sided pleural effusion may benefit from thoracentesis. Initially thought that surgery would do this as there was concern for hemothorax, however, it is on the other side from his injuries making that less likely. Cardiology following. # pleural effusion: as above, bilateral but large on the right. Doubt hemothorax with fractures and bruising on the right. Discussed with general surgery, at this point will plan to have IR tap in the am. # NSTEMI/elevated trop: peaked at 1.5, given his age and generalized deconditioning, doubt he would get much benefit from angioplasty and at this time no plans for further ischemic evaluation. # landon: baseline creatinine near 1.1 and currently elevated to 1.7, suspect this is HD mediated given ongoing hypotension but also possibly a component of acute chf and poor forward flow. Difficult as patient would not likely tolerate much fluid resuscitation given CHF and also concerning that BP and renal function would suffer more with diuresis. Cardiology not recommending any change in plan for right now. Will give albumin for now and if responds to that well can possibly start diuresis. If no improvement overnight will consult renal. # coagulopathy: presented with INR > 4 and recent trauma, giving additional vitamin K today for likely tap in am # rib fractures: multiple left sided rib fractures, trauma has been involved, rib protocol started. Patient is high risk and this was discussed at length with his daughter, mortality from rib fractures alone is high in his age group # t1/t3 compression fractures: without complaint of pain and possibly subacute, nsg evaluated, no change in recommendations # CAD: as above # a fib: rate controlled, paced, holding AC as above # IP status, multiple active medical problems, all high risk Reviewed care plan with surgery, cardiology and at length with patients daughter. Objective: Vital Signs Temp Pulse Resp BP Pulse Ox 36.4 C 76 27 H 97/56 L 95 01/17/17 16:22 01/17/17 16:22 01/17/17 16:22 01/17/17 16:22 01/17/17 16:22 Laboratory Results 01/17/17 03:29 01/17/17 03:29 01/16/17 01/17/17 01/18/17 05:59 05:59 05:59 Intake Total 1575 2061 Output Total 500 125 Balance 1075 1936 PT 31.2 SEC (12.0-15.0) H 01/17/17 03:29 INR 2.96 (0.83-1.16) H 01/17/17 03:29 - Time Spent With Patient Time Spent with Patient: greater than 35 minutes Time Spent with Patient: Greater than 35 minutes spent on this patients care, greater than 50% of time spent counseling, educating, and coordinating care regarding the above mentioned plan. ICD10 Worksheet Patient Problems: Problems Problem Status Onset Cellulitis Acute Excessive anticoagulation Acute Ribs, multiple fractures Acute Bilateral pleural effusion Acute Chronic Disease Mgmt/Transitional Care Acute Hypervolemia Acute Pleural effusion Acute Warfarin-induced coagulopathy Acute Fall Acute Hyperkalemia Acute Thoracic compression fracture Acute Multiple fractures of ribs, left side, initial encounter for closed fracture Acute
[2017-01-17 17:59] LABS: INR 2.28 (0.83-1.16); PROTIME(PATIENT) 25.3 SEC (12.0-15.0)
[2017-01-17] MEDS: ALBUMIN 25% 100 ML IV SCH (18:44)
[2017-01-17 19:11] LABS: LACTATE DEHYDROGENASE 653 IU/L (313-618)
[2017-01-17] MEDS: NS 1,000 ML IV SCH (20:50)
[2017-01-17] MEDS: ATORVASTATIN CALCIUM 10 MG TAB PO SCH (20:51)
[2017-01-17] MEDS: ZOLPIDEM TARTRATE 5 MG TAB PO SCH (20:51)
[2017-01-18] MEDS: ALBUMIN 25% 100 ML IV SCH ×5 (00:05→23:04)
[2017-01-18 05:34] LABS: INR 2.02 (0.83-1.16)
[2017-01-18 05:36] LABS: % IMMATURE GRANULYOCYTES 0.6 % (0.0-1.1); ABSOLUTE IMMATURE GRANULOCYTES 0.05 10^3/uL (0.00-0.10); ABSOLUTE NRBC COUNT 0.02 10^3/uL (0-0.01); ADD DIFF? NO; ADD MORPH? NO; ADD SCAN? NO; ATYPICAL LYMPHOCYTE FLAG 0 (0-99); FRAGMENT RBC FLAG 0 (0-99); HEMATOCRIT 35.1 % (40.0-51.0); HEMOGLOBIN 11.7 g/dL (13.7-17.5); LEFT SHIFT FLG 0 (0-99); LIPEMIA HEMOLYSIS FLAG 80 (0-99); MEAN CELL HEMOGLOBIN 35.9 pg (27.9-34.1); MEAN CELL HEMOGLOBIN CONCENTR. 33.3 g/dL (32.4-36.7); MEAN CELL VOLUME 107.7 fL (81.5-99.8); MEAN PLATELET VOLUME 10.6 fL (8.7-11.7); NRBC-AUTO% 0.2 % (0.0-0.2); PLATELET CLUMPS FLAG 0 (0-99); PLATELET COUNT 81 10^3/uL (150-400); RED BLOOD CELL COUNT 3.26 10^6/uL (4.40-6.38); RED CELL DISTRIBUTION WIDTH 16.1 % (11.5-15.2)
[2017-01-18 05:44] LABS: ANION GAP 13 mEq/L (8-16); CALCIUM 9.1 mg/dL (8.5-10.4); CARBON DIOXIDE 22 mEq/l (22-31); CHLORIDE 101 mEq/L (97-110); CREATININE 1.5 mg/dL (0.7-1.3); DIGOXIN 1.5 ng/mL (0.8-2.0); GLOMERULAR FILTRATION RATE 44; GLUCOSE 73 mg/dL (70-100); POTASSIUM 4.3 mEq/L (3.5-5.2); SODIUM 136 mEq/L (134-144)
[2017-01-18] MEDS: NS 1,000 ML IV SCH (09:06)
[2017-01-18] MEDS ORDERED: LIDOCAINE 1% 300 MG/30 ML SDV ONE ×2 (09:50→10:27)
[2017-01-18] MEDS: FERROUS SULFATE 325 MG TAB PO SCH (12:36)
[2017-01-18] MEDS: CYANO/VITAMIN B12 1000 MCG TAB PO SCH (12:36)
--- NOTE | 2017-01-18 13:22 | ASMTCMCOM ---
CM Note CM Note Notes: Abby from transitional care came and met w/ pt. CM met w/ pts daughter who is MDPOA. Daughter will speak w/ her pt about dispo planning tonight. Pt is currently residing at [facility] [place] and uses a powered wheelchair in his home. 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 Needs are to be determined. No therapies ordered at this time. CM to follow. Date Signed: 01/18/2017 01:21 PM Electronically Signed By:MITCHELL Solorzano
--- NOTE | 2017-01-18 13:30 | HOSPPROG ---
Hospitalist Progress Note Assessment/Plan: 89 yo M with PMH of CAD, CHF presenting w/p fall with large pleural effusion, multiple rib fractures and acute on chronic chf # acute on chronic systolic/diastolic heart failure: at this time has e/o pleural effusions and pulmonary edema as well as increased lower extremity edema that is likely due to decompensated chf. He is hypotensive and has LANDON, limiting our ability to diurese him. Now s/p thoracentesis for the large right sided effusion. # pleural effusion: as above, bilateral but large on the right. Full lab results from [facility] pending but is not bloody appearing and with normal pH, likely related to chf and not trauma or infection. # NSTEMI/elevated trop: peaked at 1.5, given his age and generalized deconditioning, doubt he would get much benefit from angioplasty and at this time no plans for further ischemic evaluation. Appreciate cardiology input, he is followed by [facility]. # landon: baseline creatinine near 1.1 and improved to 1.5 with albumin. HD mediated with significant hypotension present on arrival # coagulopathy: presented with INR > 4 and recent trauma, reversed with vitamin k/FFP # rib fractures: multiple left sided rib fractures, trauma has been involved, rib protocol started. Patient is high risk and this was discussed at length with his daughter, mortality from rib fractures alone is high in his age group # t1/t3 compression fractures: without complaint of pain and possibly subacute, nsg evaluated, no change in recommendations # CAD: as above # a fib: rate controlled, paced, will resume AC now that he is s/p tap, continue dig/coreg # IP status, multiple active medical problems, all high risk, Patient is apparently not interested in going to SNF, but unclear if he will be safe for independent living after dc. CM/PT/OT involved. Discussed hospice as an option with patients daughter as well. Reviewed care plan at length with patients daughter. Subjective: patient is more awake today and notes that he is feeling better than he was the last few days, no acute complaints Objective: Vital Signs Temp Pulse Resp BP Pulse Ox 36.0 C 75 24 H 102/71 95 01/18/17 12:20 01/18/17 12:20 01/18/17 12:20 01/18/17 12:20 01/18/17 12:20 Laboratory Results 01/18/17 03:45 01/18/17 03:45 01/17/17 01/18/17 01/19/17 05:59 05:59 05:59 Intake Total 1575 3336 Output Total 385 957 3750 Balance 1075 3161 -1100 PT 23.0 SEC (12.0-15.0) H 01/18/17 03:45 INR 2.02 (0.83-1.16) H 01/18/17 03:45 ICD10 Worksheet Patient Problems: Problems Problem Status Onset Fall Acute Hyperkalemia Acute Hypervolemia Acute Multiple fractures of ribs, left side, initial encounter for closed fracture Acute Pleural effusion Acute Thoracic compression fracture Acute Warfarin-induced coagulopathy Acute Bilateral pleural effusion Acute Cellulitis Acute Chronic Disease Mgmt/Transitional Care Acute Excessive anticoagulation Acute Ribs, multiple fractures Acute
[2017-01-18] MEDS: CARVEDILOL 6.25 MG TAB PO SCH ×2 (13:32→20:23)
[2017-01-18] MEDS: DIGOXIN 250 MCG TAB PO SCH (13:33)
[2017-01-18 15:44] LABS: LD, PLEURAL FLUID 281 IU/L
[2017-01-18] MEDS ORDERED: WARFARIN SODIUM 3 MG TAB PO ONE (16:00)
--- NOTE | 2017-01-18 17:28 | SOAPPROG ---
[facility] Progress Note Assessment/Plan: Assessment: 1. Coronary artery disease 2. Congestive heart failure 3. Trauma 4. Prolonged INR 5. Chronic warfarin anticoagulation 6. Large right pleural effusion 7. Acute kidney injury 8 NSTEMI 9. Atrial fibrillation He is feeling better today. He is going to have his pleural fluid tapped and at today's gone on that has been tapped was not bloody so the thinking was that was not due to trauma and may well be due to his exacerbation of congestive heart failure. He has had elevation of his troponins there is no indication that he needs further invasive evaluation right at this time but he can follow up with Dr. tiffany Perez in the clinic down the line. He says that he is back at baseline does not feel short of breath does not have chest pain or chest tightness. I he is quite optimistic and feels overall well. He has his atrial fibrillation is in be resuming full anticoagulation which would be which is very good for him. His renal function is stabilizing will continue to watch this. Plan: 01/18/17 17:26 Subjective: He is feeling better this morning. He has no chest pain He has no shortness of breath He is lying flat very comfortably in bed for the 20 minutes I was in the room with him. He denies shortness of breath He denies cough No fever chills No new trauma. Objective: Vital Signs Temp Pulse Resp BP Pulse Ox 36.3 C 75 28 H 102/68 90 L 01/18/17 15:31 01/18/17 15:31 01/18/17 15:31 01/18/17 15:31 01/18/17 15:31 Laboratory Results 01/18/17 03:45 01/18/17 03:45 01/17/17 01/18/17 01/19/17 05:59 05:59 05:59 Intake Total 1575 3336 Output Total 380 265 8680 Balance 1075 3161 -1100 PT 23.0 SEC (12.0-15.0) H 01/18/17 03:45 INR 2.02 (0.83-1.16) H 01/18/17 03:45 Physical Exam - Physical Exam General Appearance: no apparent distress Respiratory: decreased breath sounds, rhonchi Cardiac/Chest: systolic murmur, irregularly irregular, No JVD Abdomen: non-tender, soft, No organomegaly Skin: warm/dry Extremities: non-tender, No pedal edema Neuro/Psych: normal mood/affect ICD10 Worksheet Patient Problems: Problems Problem Status Onset Fall Acute Hyperkalemia Acute Hypervolemia Acute Multiple fractures of ribs, left side, initial encounter for closed fracture Acute Pleural effusion Acute Thoracic compression fracture Acute Warfarin-induced coagulopathy Acute Bilateral pleural effusion Acute Cellulitis Acute Chronic Disease Mgmt/Transitional Care Acute Excessive anticoagulation Acute Ribs, multiple fractures Acute
[2017-01-18] MEDS: ATORVASTATIN CALCIUM 10 MG TAB PO SCH (20:22)
[2017-01-18] MEDS: ZOLPIDEM TARTRATE 5 MG TAB PO SCH (20:23)
[2017-01-19] MEDS: ALBUMIN 25% 100 ML IV SCH ×3 (05:27→18:21)
[2017-01-19 05:44] LABS: % IMMATURE GRANULYOCYTES 0.7 % (0.0-1.1); ABSOLUTE IMMATURE GRANULOCYTES 0.06 10^3/uL (0.00-0.10); ABSOLUTE NRBC COUNT 0.08 10^3/uL (0-0.01); ADD DIFF? NO; ADD MORPH? NO; ADD SCAN? NO; ATYPICAL LYMPHOCYTE FLAG 0 (0-99); FRAGMENT RBC FLAG 0 (0-99); HEMATOCRIT 37.2 % (40.0-51.0); HEMOGLOBIN 12.5 g/dL (13.7-17.5); LEFT SHIFT FLG 0 (0-99); LIPEMIA HEMOLYSIS FLAG 80 (0-99); MEAN CELL HEMOGLOBIN 36.3 pg (27.9-34.1); MEAN CELL HEMOGLOBIN CONCENTR. 33.6 g/dL (32.4-36.7); MEAN CELL VOLUME 108.1 fL (81.5-99.8); MEAN PLATELET VOLUME 10.3 fL (8.7-11.7); NRBC-AUTO% 0.9 % (0.0-0.2); PLATELET CLUMPS FLAG 0 (0-99); PLATELET COUNT 83 10^3/uL (150-400); RED BLOOD CELL COUNT 3.44 10^6/uL (4.40-6.38); RED CELL DISTRIBUTION WIDTH 16.1 % (11.5-15.2)
[2017-01-19 05:49] LABS: INR 1.79 (0.83-1.16); PROTIME(PATIENT) 20.9 SEC (12.0-15.0)
[2017-01-19 06:05] LABS: ANION GAP 17 mEq/L (8-16); CALCIUM 9.5 mg/dL (8.5-10.4); CARBON DIOXIDE 20 mEq/l (22-31); CHLORIDE 103 mEq/L (97-110); CREATININE 1.1 mg/dL (0.7-1.3); GLOMERULAR FILTRATION RATE > 60; GLUCOSE 91 mg/dL (70-100); POTASSIUM 4.3 mEq/L (3.5-5.2); SODIUM 140 mEq/L (134-144)
[2017-01-19] MEDS: DIGOXIN 250 MCG TAB PO SCH (10:46)
[2017-01-19] MEDS: CYANO/VITAMIN B12 1000 MCG TAB PO SCH (10:46)
[2017-01-19] MEDS: FERROUS SULFATE 325 MG TAB PO SCH (10:47)
[2017-01-19] MEDS: CARVEDILOL 6.25 MG TAB PO SCH ×2 (10:55→18:23)
[2017-01-19] MEDS: FUROSEMIDE 20 MG/2 ML VIAL IVP SCH ×3 (13:10→20:25)
--- NOTE | 2017-01-19 13:30 | HOSPPROG ---
Hospitalist Progress Note Assessment/Plan: 89 yo M with PMH of CAD, CHF presenting w/p fall with large pleural effusion, multiple rib fractures and acute on chronic chf # acute on chronic systolic/diastolic heart failure: with increased lower extremity edema, pleural effusion and pulmonary edema. LANDON and BP improved, will start lasix. s/p thoracentesis for the large right sided effusion. Fluid is transudative by Light's criteria. # acute hypoxic respiratory failure: this am he has had increased o2 requirement , now up to 10L CPAP from previously 4L. Repeat cxr on personal review showing ? increased pulmonary edema--per radiology read no sig change. In setting of above, will start lasix 20q8 with goal 1L net negative. # pleural effusion: as above, s/p thora, transudative # NSTEMI/elevated trop: peaked at 1.5, given his age and generalized deconditioning, doubt he would get much benefit from angioplasty and at this time no plans for further ischemic evaluation. Appreciate cardiology input, he is followed by [facility]. # landon: baseline creatinine near 1.1, improved with albumin and back to baseline --starting lasix given worsening pulmonary status and will monitor creatinine # coagulopathy: presented with INR > 4 and recent trauma, reversed with vitamin k/FFP # rib fractures: multiple left sided rib fractures, trauma has been involved, rib protocol started. Patient is high risk and this was discussed at length with his daughter, mortality from rib fractures alone is high in his age group # t1/t3 compression fractures: without complaint of pain and possibly subacute, nsg evaluated, no change in recommendations # CAD: as above # a fib: rate controlled, paced, will resume AC now that he is s/p tap, continue dig/coreg # DNR: discussed with patient and his daughter again that he is high risk, he continues to decline. They are both clear that he would not want prolonged aggressive care # IP status, palliative consulted, depending on clinical course may be appropriate for hospice Subjective: no significant overnight events, patient this am with increased wob/ increased o2 needs, he denies any chest pain or sob Objective: Vital Signs Temp Pulse Resp BP Pulse Ox 36.4 C 72 13 121/67 H 92 01/19/17 12:05 01/19/17 12:05 01/19/17 12:05 01/19/17 12:05 01/19/17 12:05 Microbiology 01/18/17 11:30 Gram Stain - Final Thoracic Fluid - Aspirate Laboratory Results 01/19/17 03:52 01/19/17 03:52 01/18/17 01/19/17 01/20/17 05:59 05:59 05:59 Intake Total 3336 3299 Output Total 175 1575 160 Balance 3161 1724 -160 PT 20.9 SEC (12.0-15.0) H 01/19/17 03:52 INR 1.79 (0.83-1.16) H 01/19/17 03:52 somnolent, arousable anicteric cpap in place rrr distant crackles at bilateral bases, dec bs soft nt nd 1+ pitting ble edema warm dry well perfused minimally interactive ICD10 Worksheet Patient Problems: Problems Problem Status Onset Fall Acute Hyperkalemia Acute Hypervolemia Acute Multiple fractures of ribs, left side, initial encounter for closed fracture Acute Pleural effusion Acute Thoracic compression fracture Acute Warfarin-induced coagulopathy Acute Bilateral pleural effusion Acute Cellulitis Acute Chronic Disease Mgmt/Transitional Care Acute Excessive anticoagulation Acute Ribs, multiple fractures Acute
--- NOTE | 2017-01-19 14:27 | SOAPPROG ---
[facility] Progress Note Assessment/Plan: Assessment: 1. Coronary artery disease 2. Congestive heart failure 3. Trauma 4. Prolonged INR 5. Chronic warfarin anticoagulation 6. Large right pleural effusion 7. Acute kidney injury 8 NSTEMI 9. Atrial fibrillation Plan: 01/18/17 17:26 01/19/17 14:29 See the problem list above. Today he is more tired. I have had a long conversation with him and I have talked to his daughter is well. I would recommend we consider comfort care only. I brought that up with them and we are going to talk about more tomorrow. I think the daughter is leaning in that direction. I think he is getting tired of coming to the hospital I think he wants more comfort. They would like to talk about more tomorrow. His renal function is markedly improved and this is a good time to start the Lasix which has begun. His chest x-ray is remarkably clear of significant changes for pulmonary edema. I did not want the daughter to think that a little bit of Lasix would make him remarkably better. I think it will help I think he will feel better But I think that we have underlying pathology on which is getting together and considering to make him feel quite tired and many of those concerns. Full factors such as age fatigue significant respiratory issues chronic renal insufficiency chronic medications are in fact things that we cannot control too well. All his questions have been answered. I would not proceed with further invasive evaluation at this time. We are very happy to reconsider that anybody on the staff her team is interested in doing that. We are very happy to discuss it. Subjective: He feels tired today He feels weak today I visited him twice during the day. Wants with his daughter there wants alone. He has no chest pain He has no peripheral edema. He does not feel significantly more short of breath. They did put his CPAP on because he required more oxygen last night. Started having discussions about end of life choices and we are going to continue these discussions. He has no palpitations He has no arthralgias He has no nausea or vomiting. He denies fevers or chills at this point. Objective: Vital Signs Temp Pulse Resp BP Pulse Ox 36.4 C 72 13 121/67 H 92 01/19/17 12:05 01/19/17 12:05 01/19/17 12:05 01/19/17 12:05 01/19/17 12:05 Microbiology 01/18/17 11:30 Gram Stain - Final Thoracic Fluid - Aspirate Laboratory Results 01/19/17 03:52 01/19/17 03:52 01/18/17 01/19/17 01/20/17 05:59 05:59 05:59 Intake Total 3336 3299 Output Total 175 1575 160 Balance 3161 1724 -160 PT 20.9 SEC (12.0-15.0) H 01/19/17 03:52 INR 1.79 (0.83-1.16) H 01/19/17 03:52 Selected Entries 01/19/17 01/19/17 04:02 07:09 Heart Rate 75 75 O2 Sat (%) 86 L 82 L Blood Pressure 114/66 119/70 Mean Arterial 82 86 Pressure (MAP) O2 (L/minute) 10 10 Laboratory Tests 01/16/17 01/16/17 01/16/17 12:20 12:20 18:12 WBC Hct Plt Count 90 L BUN Creatinine Lactate Dehydrogenase Troponin I 1.520 H NT-Pro-B Natriuret Pep 5910 H 01/16/17 01/17/17 01/17/17 22:50 03:29 03:29 WBC Hct 36.8 L Plt Count 81 L BUN 45 H Creatinine 1.7 H Lactate Dehydrogenase Troponin I 1.390 H 1.430 H NT-Pro-B Natriuret Pep 01/17/17 01/18/17 01/19/17 18:30 03:45 03:52 WBC 8.82 Hct 35.1 L 37.2 L Plt Count 83 L BUN Creatinine Lactate Dehydrogenase 653 H Troponin I NT-Pro-B Natriuret Pep 01/19/17 03:52 WBC Hct Plt Count BUN 45 H Creatinine 1.1 Lactate Dehydrogenase Troponin I NT-Pro-B Natriuret Pep Physical Exam - Physical Exam General Appearance: mild distress Respiratory: decreased breath sounds, rhonchi Cardiac/Chest: systolic murmur, irregularly irregular Abdomen: non-tender, soft, No organomegaly Skin: normal color, No pallor Extremities: No normal range of motion, No calf tenderness Neuro/Psych: alert (I will call me back on 07/01 that might be [phone] finger at at), motor weakness (H doctor so I talked to them taken fine ER doctor they believe Shukri talk to their call me back might be find the ER doctor in case she but I think workup for that and get that lasted a no is I did which jaws resting get all the she does not have anybody else shoulder call me get somewhat add a) ICD10 Worksheet Patient Problems: Problems Problem Status Onset Fall Acute Hyperkalemia Acute Hypervolemia Acute Multiple fractures of ribs, left side, initial encounter for closed fracture Acute Pleural effusion Acute Thoracic compression fracture Acute Warfarin-induced coagulopathy Acute Bilateral pleural effusion Acute Cellulitis Acute Chronic Disease Mgmt/Transitional Care Acute Excessive anticoagulation Acute Ribs, multiple fractures Acute
[2017-01-19] MEDS ORDERED: WARFARIN SODIUM 3 MG TAB PO ONE (16:00)
[2017-01-19] MEDS: LORazepam 2 MG/ML INJ IVP PRN ×2 (16:39→20:25)
--- NOTE | 2017-01-19 20:16 | PDPCPN ---
Palliative Care Progress Note Assessment/Plan: Referring provider: Dr Ramesh Reason for consult: Complex medical decision making Symptom control HPI: Walker "Joyce Sauer is a 89 yo male with PMH CHF, CAD, and a fib admitted to the hospital s/p fall. fond to have large pleural effusions s/p thoracentesis, multiple rib fractures, and acute on chronic CHF. hospitalization complicated by ongoing resp failure requiring CPAP as well as acute kidney injury. Palliative care consulted for complex medical decision making. Met with daughter outside of the room. dereje stated she feels she knows her dad's wishes very well. he was very fatigued and was not able to participate in the conversation. dereje stated he has been declining at home over the past year. He had more falls and recently asked to get a wheelchair to move around in. He was getting more tired and more SOB. He is very proud to live in independent living and dereje feels this is where he really wants to be. She states he does "not want to just exist". She is hoping the lasix will provide some improvement in at least his symptoms. He brother is coming into town [facility] and discussed meeting tomorrow to see how Jovon is feeling. Assessment: Physical: - Pain: none noted -tylenol PRN - Dyspnea: - on cpap and oxygen - a fan can also help subjective dyspnea - s/p thoracentesis - weakness - PT/ot as able Emotional/psychological: has support from family Advanced Care Planning: Is patient decisional?: No Code Status: DNR POA: daughter dereje is MDPOA Plan: Will meet with daughter, son, and patient tomorrow at 11 am for follow up. Subjective: sleeping Objective: Social History: . Has 3 children all involved, 1 daughter local. 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 Medication list reviewed ROS: General: fatigue, weakness ENT: negative Resp: dyspnea GI: poor appetite : negative MS: negative Skin: negative Neuro: negative Psych: negative Functional assessment: PPS: 40% Functional status: dependent on ADLs, IADLs Vital Signs Temp Pulse Resp BP Pulse Ox 36.7 C 78 20 105/63 94 01/19/17 19:52 01/19/17 19:52 01/19/17 19:52 01/19/17 19:52 01/19/17 19:52 Microbiology 01/18/17 11:30 Gram Stain - Final Thoracic Fluid - Aspirate Laboratory Results 01/19/17 03:52 01/19/17 03:52 01/18/17 01/19/17 01/20/17 05:59 05:59 05:59 Intake Total 3336 3299 440 Output Total 175 1575 500 Balance 3161 1724 -60 PT 20.9 SEC (12.0-15.0) H 01/19/17 03:52 INR 1.79 (0.83-1.16) H 01/19/17 03:52 Physical Exam - Physical Exam General Appearance: no apparent distress, other (sleeping) Respiratory: other (on cpap), No respiratory distress, No accessory muscle use Skin: normal color, warm/dry Extremities: pedal edema (mild) Neuro/Psych: other (sleeping) ICD10 Worksheet Patient Problems: Problems Problem Status Onset Fall Acute Hyperkalemia Acute Hypervolemia Acute Multiple fractures of ribs, left side, initial encounter for closed fracture Acute Palliative care encounter Acute Pleural effusion Acute Thoracic compression fracture Acute Warfarin-induced coagulopathy Acute Bilateral pleural effusion Acute Cellulitis Acute Chronic Disease Mgmt/Transitional Care Acute Excessive anticoagulation Acute Ribs, multiple fractures Acute - ICD10 Problem Qualifiers (1) Palliative care encounter
[2017-01-19] MEDS: ATORVASTATIN CALCIUM 10 MG TAB PO SCH (20:28)
[2017-01-20] MEDS: ALBUMIN 25% 100 ML IV SCH ×2 (00:04→05:36)
[2017-01-20] MEDS: ZOLPIDEM TARTRATE 5 MG TAB PO SCH ×2 (02:03→21:52)
[2017-01-20 04:57] LABS: INR 2.02 (0.83-1.16)
[2017-01-20] MEDS: FUROSEMIDE 20 MG/2 ML VIAL IVP SCH ×2 (05:36→13:58)
[2017-01-20] MEDS: CYANO/VITAMIN B12 1000 MCG TAB PO SCH (08:21)
[2017-01-20] MEDS: FERROUS SULFATE 325 MG TAB PO SCH (08:21)
[2017-01-20] MEDS: CARVEDILOL 6.25 MG TAB PO SCH (08:22)
[2017-01-20 09:22] LABS: ANION GAP 18 mEq/L (8-16); CALCIUM 9.8 mg/dL (8.5-10.4); CARBON DIOXIDE 19 mEq/l (22-31); CHLORIDE 101 mEq/L (97-110); GLOMERULAR FILTRATION RATE > 60; GLUCOSE 67 mg/dL (70-100); POTASSIUM 4.3 mEq/L (3.5-5.2); SODIUM 138 mEq/L (134-144)
[2017-01-20] MEDS: CARVEDILOL 3.125 MG TAB PO SCH ×2 (09:23→17:23)
[2017-01-20] MEDS: DIGOXIN 250 MCG TAB PO SCH (10:52)
--- NOTE | 2017-01-20 11:34 | HOSPPROG ---
Hospitalist Progress Note Assessment/Plan: Assessment/Plan: 89 yo M with PMH of CAD, CHF presenting w/p fall with large pleural effusion, multiple rib fractures and acute on chronic combined chf # acute on chronic systolic and diastolic congestive heart failure: evidenced by lower extremity edema, pleural effusion and pulmonary edema - had been receiving albumin + lasix to increase renal perfusion, stop albumin today as patient is net even, possibly increase lasix IV today, depending on UOP - patient's condition is terminal and he has short life-expectancy, per Cards eval - extensively counseled patient and son today regarding the nature of his condition, the likelihood of frequent rehospitalizations moving forward which will do little to improve his overall level of functioning and will likely only marginally improve his symptom of shortness of breath each time - recommended hospice support w/ home private duty care, since patient's goal is to return to independent living at [place], d/w - recommend ongoing outpatient support through [facility] to maintain his fluid balance for symptomatic support # acute hypoxic respiratory failure: evidenced by SpO2 89% on 7L high flow oxygen, 2/2 pleural effusions/CHF - advised patient that he will likely discharge home w/ supplemental oxygen, for comfort # pleural effusion: as above, s/p thora, transudative # NSTEMI/elevated trop: peaked at 1.5, given his age and generalized deconditioning, doubt he would get much benefit from angioplasty and at this time no plans for further ischemic evaluation. Appreciate cardiology input, he is followed by [facility]. # vero: baseline creatinine near 1.1, peaked 1.7 2/2 hypoperfusion from CHF - downtrended w/ albumin, monitor now that we are using single agent lasix # coagulopathy: presented with INR > 4 and recent trauma, reversed with vitamin k/FFP - therapeutic 2.0, monitor daily # rib fractures: multiple left sided rib fractures, trauma has been involved, rib protocol started. Patient is high risk and this was discussed at length with his daughter, mortality from rib fractures alone is high in his age group - pulm toilette # t1/t3 compression fractures: without complaint of pain and possibly subacute, nsg evaluated, no change in recommendations # CAD: cont on bblocker, lower dose for renal perfusion # a fib: persistent, rate controlled w/ bblocker, rhythm w/ dig, paced, on coumadin code: DNR ppx: high risk, on coumadin diet: cardiac dispo: ADD uncertain, likely 01/23 given complexity of renal/cardiac issues and ongoing mgmt Subjective: Patient remains symptomatic with minimal exertion Objective: Vital Signs Temp Pulse Resp BP Pulse Ox 36.6 C 81 18 101/63 93 01/20/17 10:56 01/20/17 10:56 01/20/17 10:56 01/20/17 10:56 01/20/17 10:56 Microbiology 01/18/17 11:30 Gram Stain - Final Thoracic Fluid - Aspirate Laboratory Results 01/19/17 03:52 01/20/17 04:27 01/19/17 01/20/17 01/21/17 05:59 05:59 05:59 Intake Total 3299 1030 Output Total 1575 1250 50 Balance 1724 -220 -50 PT 23.0 SEC (12.0-15.0) H 01/20/17 04:27 INR 2.02 (0.83-1.16) H 01/20/17 04:27 - Time Spent With Patient Time Spent with Patient: greater than 35 minutes Time Spent with Patient: Greater than 35 minutes spent on this patients care, greater than 50% of time spent counseling, educating, and coordinating care regarding the above mentioned plan. - Physical Exam Constitutional: no apparent distress, other (elderly appearing) Cardiovascular: edema (1+ bilat LE) Respiratory: rhonchi (bilat, L>R), No expiratory wheeze, No bronchial breath sounds Neurologic: AAOx3 Psychiatric: interacting appropriately, not anxious, not encephalopathic, thought process linear ICD10 Worksheet Patient Problems: Problems Problem Status Onset Cellulitis Acute Excessive anticoagulation Acute Ribs, multiple fractures Acute Bilateral pleural effusion Acute Chronic Disease Mgmt/Transitional Care Acute Hypervolemia Acute Pleural effusion Acute Warfarin-induced coagulopathy Acute Fall Acute Hyperkalemia Acute Thoracic compression fracture Acute Multiple fractures of ribs, left side, initial encounter for closed fracture Acute Palliative care encounter Acute
--- NOTE | 2017-01-20 12:37 | ASMTCMCOM ---
CM Note CM Note Notes: Jackie at [facility] conducted a family meeting today. Family is agreeable to exploring hospice options and 24hr care. CM provided resources. CM faxed a referral to [facility]. Mariola from [facility] will be in tomorrow at 12PM. CM to follow. Date Signed: 01/20/2017 12:36 PM Electronically Signed By:MITCHELL Solorzano
--- NOTE | 2017-01-20 13:26 | PDPCPN ---
Palliative Care Progress Note Assessment/Plan: HPI: Gilles Sauer is a 89 yo male with PMH CHF, CAD, and a fib admitted to the hospital s/p fall. fond to have large pleural effusions s/p thoracentesis, multiple rib fractures, and acute on chronic CHF. hospitalization complicated by ongoing resp failure requiring CPAP as well as acute kidney injury. Palliative care consulted for complex medical decision making. Met with daughter Dereje, son Gilles, and Jovon at the bedside this morning. His family stated they spoke extensively with Dr Ryan this morning and have a clear understanding of the medical picture. Jovon stated he feels like he will here in the hospital and he is comfortable and ready for that. He does not want to linger and does not feel his current status is in line with a good quality of life. He is not afraid of dying, only of lingering in a weakened state. We discussed options including switching to comfort care only (including stopping oxygen) vs hospice care at home vs continued medical care. The family would like to explore hospice care at home and feel Jovon would most likely want to be back at [place]. Jovon was very clear about not wanting to move to a higher level of care and was ok with caregivers coming in to help him. Assessment: Physical: - Pain: none noted -tylenol PRN - Dyspnea: - oxygen as needed - a fan can also help subjective dyspnea - s/p thoracentesis - weakness - PT/ot as able Emotional/psychological: has support from family Advanced Care Planning: Is patient decisional?: No Code Status: DNR POA: daughter dereje is MDPOA Plan: Meeting with [facility] tomorrow at 12. Plan likely to go home with private duty caregivers and hospice care. Subjective: I'm ok Objective: Vital Signs Temp Pulse Resp BP Pulse Ox 36.6 C 81 18 101/63 93 01/20/17 10:56 01/20/17 10:56 01/20/17 10:56 01/20/17 10:56 01/20/17 10:56 Microbiology 01/18/17 11:30 Gram Stain - Final Thoracic Fluid - Aspirate Laboratory Results 01/19/17 03:52 01/20/17 04:27 01/19/17 01/20/17 01/21/17 05:59 05:59 05:59 Intake Total 3299 1030 Output Total 1575 1250 50 Balance 1724 -220 -50 PT 23.0 SEC (12.0-15.0) H 01/20/17 04:27 INR 2.02 (0.83-1.16) H 01/20/17 04:27 Physical Exam - Physical Exam General Appearance: alert, no apparent distress Respiratory: No respiratory distress, No accessory muscle use Skin: normal color, warm/dry Extremities: pedal edema (trace) Neuro/Psych: alert, oriented x 3 ICD10 Worksheet Patient Problems: Problems Problem Status Onset Fall Acute Hyperkalemia Acute Hypervolemia Acute Multiple fractures of ribs, left side, initial encounter for closed fracture Acute Palliative care encounter Acute Pleural effusion Acute Thoracic compression fracture Acute Warfarin-induced coagulopathy Acute Bilateral pleural effusion Acute Cellulitis Acute Chronic Disease Mgmt/Transitional Care Acute Excessive anticoagulation Acute Ribs, multiple fractures Acute - ICD10 Problem Qualifiers (1) Palliative care encounter
--- NOTE | 2017-01-20 15:38 | PDCARPN ---
Cardiology Progress Note Assessment/Plan: Assessment: 1. Coronary artery disease 2. Congestive heart failure 3. Trauma 4. Prolonged INR 5. Chronic warfarin anticoagulation 6. Large right pleural effusion 7. Acute kidney injury 8 NSTEMI 9. Atrial fibrillation Plan: 01/18/17 17:26 01/20/17 15:37 I spent 45 minutes with the family and with the patient. He is very aware that he may be dieting and he wants comfort measures only. Have met also with discharge planning and the 2 children. I believe they all understand the choices and wants to go to hospice. They would like to switch to comfort care only but they want to talk to another child and they will talk to Dr. young when they are ready and this which can be made I have discussed this with Dr. Schmid as well. Specifically if this which comfort care only I recommend that they stop oxygen therapy that they stop Lasix therapy they stop all routine cardiovascular drugs and then at things back as needed for comfort. Diagnostic testing would stop. He totally understands this and it is his choice loud and clear. Subjective: He is tired. He has no chest pain He has no shortness of breath He has no new symptoms of fever chills Reviewed/Discussed With: family (Lightheaded or dizzy.no) Objective: Vital Signs (8 Hrs) Temp Pulse Resp BP Pulse Ox 01/20/17 13:54 75 26 H 100/55 L 96 01/20/17 10:56 36.6 C 81 18 101/63 93 01/20/17 10:52 74 01/20/17 08:22 76 103/58 L 01/20/17 08:00 36.5 C 76 23 H 103/58 L 89 L Intake/Output (24 Hrs) 01/19/17 01/20/17 01/21/17 05:59 05:59 05:59 Intake Total 3299 1030 Output Total 1575 1250 425 Balance 1724 -220 -425 Intake: Oral (ml) 250 790 IV Intake (ml) 40 IV Infused (ml) 3049 200 Albumin 25% 100 ml @ As 300 200 Directed IV Q6HRS AJ Rx# :[id number] Ns 1,000 ml @ 75 mls/hr 2749 IV CONT AJ Rx#: [id number] Output: Urine (ml) 575 1250 425 Bedside Commode 125 Urinal 450 1250 425 Thoracentesis 1000 Other: Weight 73.5 kg Number of Voids Urinal 1 2 Result Diagrams: 01/19/17 03:52 01/20/17 04:27 ICD10 Worksheet Patient Problems: Problems Problem Status Onset Fall Acute Hyperkalemia Acute Hypervolemia Acute Multiple fractures of ribs, left side, initial encounter for closed fracture Acute Palliative care encounter Acute Pleural effusion Acute Thoracic compression fracture Acute Warfarin-induced coagulopathy Acute Bilateral pleural effusion Acute Cellulitis Acute Chronic Disease Mgmt/Transitional Care Acute Excessive anticoagulation Acute Ribs, multiple fractures Acute
[2017-01-20] MEDS ORDERED: WARFARIN SODIUM 2 MG TAB PO ONE (16:15)
[2017-01-20] MEDS: FUROSEMIDE 40 MG TAB PO SCH (18:48)
[2017-01-20] MEDS: LORazepam 2 MG/ML INJ IVP PRN (23:30)
[2017-01-21] MEDS: DIGOXIN 250 MCG TAB PO SCH (11:34)
[2017-01-21] MEDS: FUROSEMIDE 40 MG TAB PO SCH ×2 (12:26→20:35)
--- NOTE | 2017-01-21 14:13 | ASMTCMCOM ---
CM Note CM Note Notes: 01/21/2017 Case Management Note: [facility] met w/family. Plan for pt to d/c on Monday for 1600 admission into [facility]. [facility] will have RN meet family at [place] at 1600 with all necessary equipment. Pt plans to continue high flow O2 at this time. Daughter and Son present for Hospice meeting and in agreement. [place] notified. Case Management to arrange transport on Monday. Case Management to follow. 01/20/2017 CM Note Jackie at [facility] conducted a family meeting today. Family is agreeable to exploring hospice options and 24hr care. CM provided resources. CM faxed a referral to [facility]. Mariola from [facility] will be in tomorrow at 12PM. CM to follow. Date Signed: 01/21/2017 02:12 PM Electronically Signed By:Payal Noland RN
--- NOTE | 2017-01-21 14:18 | HOSPPROG ---
Hospitalist Progress Note Assessment/Plan: Assessment/Plan: 89 yo M with PMH of CAD, CHF presenting w/p fall with large pleural effusion, multiple rib fractures and acute on chronic combined chf # acute on chronic systolic and diastolic congestive heart failure: evidenced by lower extremity edema, pleural effusion and pulmonary edema - given comfort measures direction, adjusted to PO lasix to prevent rapid accumulation of fluid, other Rx strategies inapprop at this time # acute hypoxic respiratory failure: evidenced by SpO2 89% on 7L high flow oxygen, 2/2 pleural effusions/CHF - long convo w/ patient/family/hospice today regarding whether to continue the 5LPM o2 patient is currently receiving - my advice is that continuing the o2 is patient choice, and, if it is uncomfortable he should have it removed, and, if he would like to continue mentating as long as possible, then he should keep it on - his adult children have slightly discordant perceptions of his verbal responses to questions thus far regarding whether to continue or discontinue supp o2, and we discussed effective ways to present this question to the patient moving forward, so we are more confident in his response - hospice is able to support his o2 needs transitioning to [place], and can then revisit with patient whether to continue vs. discontinue # pleural effusion: as above, s/p thora, transudative # NSTEMI/elevated trop: peaked at 1.5, given his age and generalized deconditioning, doubt he would get much benefit from angioplasty and at this time no plans for further ischemic evaluation # vero: baseline creatinine near 1.1, peaked 1.7 2/2 hypoperfusion from CHF, no further monitoring # coagulopathy: presented with INR > 4 and recent trauma, reversed with vitamin k/FFP, no further monitoring # rib fractures: multiple left sided rib fractures, trauma has been involved, rib protocol started. Patient is high risk and this was discussed at length with his daughter, mortality from rib fractures alone is high in his age group - pulm toilette # t1/t3 compression fractures: without complaint of pain and possibly subacute, nsg evaluated, no change in recommendations # CAD: stopped all Rx w/ exception of lasix, per comfort care # a fib: stopped all Rx per comfort care code: DNR, comfort care ppx: high risk, off Rx diet: cardiac dispo: ADD uncertain, likely 01/23 w/ hospice to [place], family/CM/hospice currently evaluating care needs Subjective: patient reports he is feeling well, eating romanian toast Objective: Vital Signs Temp Pulse Resp BP Pulse Ox 36.2 C 75 24 H 97/56 L 93 01/20/17 17:22 01/20/17 17:23 01/20/17 17:22 01/20/17 17:23 01/20/17 17:22 Microbiology 01/18/17 11:30 Gram Stain - Final Thoracic Fluid - Aspirate Body Fluid Culture - Final Laboratory Results 01/19/17 03:52 01/20/17 04:27 01/20/17 01/21/17 01/22/17 05:59 05:59 05:59 Intake Total 1030 450 Output Total 1250 865 Balance -220 -415 PT 23.0 SEC (12.0-15.0) H 01/20/17 04:27 INR 2.02 (0.83-1.16) H 01/20/17 04:27 - Physical Exam Constitutional: no apparent distress, not in pain, chronically ill appearing, No uncomfortable Respiratory: reduced air movement (R base), inspiratory crackles, No expiratory wheeze, No bronchial breath sounds Neurologic: AAOx3 Psychiatric: not anxious, not encephalopathic, flat affect, No agitated ICD10 Worksheet Patient Problems: Problems Problem Status Onset Cellulitis Acute Excessive anticoagulation Acute Ribs, multiple fractures Acute Bilateral pleural effusion Acute Chronic Disease Mgmt/Transitional Care Acute Hypervolemia Acute Pleural effusion Acute Warfarin-induced coagulopathy Acute Fall Acute Hyperkalemia Acute Thoracic compression fracture Acute Multiple fractures of ribs, left side, initial encounter for closed fracture Acute Palliative care encounter Acute
[2017-01-21] MEDS: ZOLPIDEM TARTRATE 5 MG TAB PO SCH (20:35)
[2017-01-22] MEDS: FUROSEMIDE 40 MG TAB PO SCH ×2 (08:50→17:05)
[2017-01-22] MEDS: DIGOXIN 250 MCG TAB PO SCH (08:50)
--- NOTE | 2017-01-22 12:08 | HOSPPROG ---
Hospitalist Progress Note Assessment/Plan: Assessment/Plan: 89 yo M with PMH of CAD, CHF presenting w/p fall with large pleural effusion, multiple rib fractures and acute on chronic combined chf # acute on chronic systolic and diastolic congestive heart failure: evidenced by lower extremity edema, pleural effusion and pulmonary edema - given comfort measures direction, adjusted to PO lasix to prevent rapid accumulation of fluid, other Rx strategies inapprop at this time # acute hypoxic respiratory failure: evidenced by SpO2 89% on 7L high flow oxygen, 2/2 pleural effusions/CHF - long convo w/ patient/family today regarding how patient would like to proceed with supplemental oxygen - he does not want to hasten his decline, and is not uncomfortable from the supp o2, and, therefore, continuing his o2 at his current rate makes sense supportively - patient was clear today that he would like to be conscious during his dying, not in his sleep, and accepts pain as part of the process, albeit he would like support to control pain/discomfort when that becomes an issue - d/w family, they are arranging home 21/11 care, and will likely have these arrangements safely in place by tomorrow, so pt can discharge home w/ hospice + private duty care to [facility] living # pleural effusion: as above, s/p thora, transudative # NSTEMI/elevated trop: peaked at 1.5, given his age and generalized deconditioning, doubt he would get much benefit from angioplasty and at this time no plans for further ischemic evaluation # vero: baseline creatinine near 1.1, peaked 1.7 2/2 hypoperfusion from CHF, no further monitoring # coagulopathy: presented with INR > 4 and recent trauma, reversed with vitamin k/FFP, no further monitoring # rib fractures: multiple left sided rib fractures, trauma has been involved, rib protocol started. Patient is high risk and this was discussed at length with his daughter, mortality from rib fractures alone is high in his age group - pulm toilette # t1/t3 compression fractures: without complaint of pain and possibly subacute, nsg evaluated, no change in recommendations # CAD: stopped all Rx w/ exception of lasix, per comfort care # a fib: stopped all Rx per comfort care code: DNR, comfort care ppx: high risk, off Rx diet: cardiac dispo: ADD uncertain, likely 9/25 w/ hospice to [facility], family/CM/hospice currently evaluating care needs Subjective: patient denies pain, has required asst to transfer, counseled patient/family extensively Objective: Vital Signs Temp Pulse Resp BP Pulse Ox 36.2 C 75 24 H 97/56 L 93 01/20/17 17:22 01/20/17 17:23 01/20/17 17:22 01/20/17 17:23 01/20/17 17:22 Microbiology 01/18/17 11:30 Gram Stain - Final Thoracic Fluid - Aspirate Body Fluid Culture - Final Laboratory Results 01/19/17 03:52 01/20/17 04:27 01/21/17 01/22/17 01/23/17 05:59 05:59 05:59 Intake Total 450 200 Output Total 865 900 Balance -415 -700 PT 23.0 SEC (12.0-15.0) H 01/20/17 04:27 INR 2.02 (0.83-1.16) H 01/20/17 04:27 - Time Spent With Patient Time Spent with Patient: greater than 35 minutes Time Spent with Patient: Greater than 35 minutes spent on this patients care, greater than 50% of time spent counseling, educating, and coordinating care regarding the above mentioned plan. - Physical Exam Constitutional: not in pain, chronically ill appearing, No uncomfortable Neurologic: AAOx3 Psychiatric: not anxious, not encephalopathic, No agitated ICD10 Worksheet Patient Problems: Problems Problem Status Onset Cellulitis Acute Excessive anticoagulation Acute Ribs, multiple fractures Acute Bilateral pleural effusion Acute Chronic Disease Mgmt/Transitional Care Acute Hypervolemia Acute Pleural effusion Acute Warfarin-induced coagulopathy Acute Fall Acute Hyperkalemia Acute Thoracic compression fracture Acute Multiple fractures of ribs, left side, initial encounter for closed fracture Acute Palliative care encounter Acute
[2017-01-22] MEDS: ZOLPIDEM TARTRATE 5 MG TAB PO SCH (21:17)
[2017-01-23] MEDS: FUROSEMIDE 40 MG TAB PO SCH ×2 (09:34→14:11)
[2017-01-23] MEDS: DIGOXIN 250 MCG TAB PO SCH (09:34)
[2017-01-23 09:36] VITALS: PULSE 76
[2017-01-23 11:02] VITALS: BP 105/60; RESP 20; TEMP 98.1; O2SAT 94
[2017-01-23] MEDS ORDERED: PNEUMOC 13-VAL CONJ-DIP CRM/PF 0.5 ML SYR IM ONE (11:03)
--- NOTE | 2017-01-23 17:26 | PDDCSUM ---
Discharge Summary Discharge Summary: DISCHARGE SUMMARY FOLLOW-UP ITEMS: Home hospice care DATE OF ADMISSION: 01/16/2017 DATE OF DISCHARGE: 01/23/2017 DISCHARGE DIAGNOSES: 1. Acute on chronic systolic and diastolic congestive heart failure exacerbation 2. Acute hypoxic respiratory failure 3. Acute pleural effusion 4. Acute non ST elevation myocardial infarction 5. Acute kidney injury 6. Acute coagulopathy 7. Acute rib fractures 8. Subacute T1 and T3 compression fractures 9. Chronic coronary artery disease 10. Persistent atrial fibrillation CONSULTATIONS: Hospice, Cardiology PROCEDURES / IMAGING: Diagnostic and therapeutic thoracentesis, echocardiogram CHIEF COMPLAINT: Shortness of breath SUBJECTIVE: Patient reports he is feeling comfortable discharge PHYSICAL EXAM ON DISCHARGE: Systolic blood pressure is 100, heart 5 L nasal cannula early appearing, chronically ill appearing, alert awake oriented x3, 1+ bilateral lower extremity edema LABS ON DISCHARGE: None HOSPITAL COURSE BY PROBLEM: The patient presented with shortness of breath secondary to acute on chronic systolic and diastolic congestive heart failure exacerbation evidenced by lower extremity edema, pleural effusion, pulmonary edema. The patient had extensive comorbid conditions including acute non ST elevation myocardial infarction evidenced by troponin of 1.5, angioplasty was not recommended to the patient given his generalized deconditioning and functional limitations. The patient also experienced acute hypoxic respiratory failure as evidenced by SpO2 of 89% on 7 L high-flow oxygen, secondary to his pleural effusions and congestive heart failure exacerbation. He underwent diagnostic and therapeutic thoracentesis in an attempt to alleviate his respiratory discomfort, and this did not seem to provide appreciable benefit. Patient ultimately elected for hospice care and no further interventions were performed. The patient was only kept on Lasix for symptomatic care, and he discontinued his atrial fibrillation medications given that he has a symptomatic AFib and this should not cause any physical discomfort to the patient as he nears the end of life. The patient is family received extensive end of life counseling from both myself as well as our hospice home care coordinator and nursing care. DISCHARGE MEDICATIONS: Please see official discharge medication reconciliation sheet in chart , Lasix 40 mg daily, Ambien at night as needed, Roxanol and Ativan as needed. DISCHARGE INSTRUCTIONS: The patient will receive outpatient home hospice as well as private duty 21/11 care. TIME SPENT: Greater than 30 minutes were spent on direct patient care, as well as discharge planning and preparation.
== END 2017-01-23 15:46 | disposition hospice, home (50) | DRG 280 ==
LOC: EDUNIT# → F2W 14:15
PROVIDERS: ADMIT Internal Medicine; ATTEND Internal Medicine
DX: I50.23 Acute on chronic systolic (congestive) heart failure (principal); J96.01 Acute respiratory failure with hypoxia; J90 Pleural effusion, not elsewhere classified; I21.4 Non-ST elevation (NSTEMI) myocardial infarction; S22.42XA Multiple fractures of ribs, left side, initial encounter for closed fracture; W19.XXXA Unspecified fall, initial encounter; Y92.121 Bathroom in nursing home as the place of occurrence of the external cause; N17.9 Acute kidney failure, unspecified; I48.1 Persistent atrial fibrillation; I25.10 Atherosclerotic heart disease of native coronary artery without angina pectoris; R79.1 Abnormal coagulation profile; Z95.1 Presence of aortocoronary bypass graft; Z95.0 Presence of cardiac pacemaker; Z79.01 Long term (current) use of anticoagulants
CPT/HCPCS: 82947-QW; 97162-GP; 97165-GO; G0008; G0009; G8978-GP-CJ; G8979-GP-CI; G8987-GO-CJ; G8988-GO-CI; J1940; J2060; J3430; P9016; P9017; P9047